=== PATIENT | male | born 1950 | race Caucasian/White ===

== ENCOUNTER → 2016-12-16 | Outpatient (CLI) | payer OTHER ==
[~2016-12-16] MED LIST: CIPR1TAB11 PO; LISI5TAB3 PO; METO50TA7 PO; NAPR1TAB9 PO
[2016-12-16 13:59] LABS: BLOOD UREA NITROGEN 19 mg/dl (7-18); BUN/CREATININE RATIO 19.2 (10-20); CARBON DIOXIDE 27 mmol/L (21-32); CHLORIDE 105 mmol/L (98-107); GLUCOSE 88 mg/dl (70-99); POTASSIUM 4.3 mmol/L (3.5-5.1); SODIUM 141 mmol/L (136-145)
[2016-12-16 14:03] LABS: PROSTATE SPECIFIC ANTIGEN 0.965 ng/ml (0.000-4.000)
== END | disposition home or self-care (01) ==
LOC: C.LABSPEC 12:31
PROVIDERS: ATTEND Internal Medicine
DX: I10 Essential (primary) hypertension (principal); N40.0 Benign prostatic hyperplasia without lower urinary tract symptoms; R30.0 Dysuria

== ENCOUNTER → 2016-12-19 | Outpatient (CLI) | payer OTHER | END | disposition home or self-care (01) | LOC: C.LABSPEC 12:19 | PROVIDERS: ATTEND Internal Medicine | DX: Z12.11 Encounter for screening for malignant neoplasm of colon (principal) ==

== ENCOUNTER → 2017-12-19 | Outpatient (CLI) | payer OTHER ==
[~2017-12-19] MED LIST changes: -METO50TA7 PO; +METO50TA8 PO
[2017-12-24 15:10] LABS: FECAL OCCULT BLOOD #1 NEGATIVE (NEGATIVE); FECAL OCCULT BLOOD #2 NEGATIVE (NEGATIVE); FECAL OCCULT BLOOD #3 NEGATIVE (NEGATIVE)
== END ==
LOC: C.LABSPEC 14:55
PROVIDERS: ATTEND Internal Medicine
DX: Z12.11 Encounter for screening for malignant neoplasm of colon (principal)

== ENCOUNTER → 2017-12-19 | Outpatient (CLI) | payer OTHER ==
[2017-12-19 13:45] LABS: BASO % 0.3 %; BASO ABS # 0.02 K/uL (0-0.2); EOS % 1.5 %; EOS ABS # 0.09 K/uL (0-0.5); HEMATOCRIT 41.7 % (42-52); HEMOGLOBIN 14.5 g/dL (14.0-18.0); IG# 0.02 K/uL (0.00-0.02); LYMPH % 31.9 %; LYMPH ABS # 1.91 K/uL (1.2-3.4); MEAN CELL VOLUME 91.2 fL (80-100); MEAN CORPUSCULAR HEMOGLOBIN 31.7 pg (25-34); MEAN CORPUSCULAR HGB CONC 34.8 g/dl (32-36); MEAN PLATELET VOLUME 11.2 fL (7.4-10.4); MONO % 8.9 %; MONO ABS # 0.53 K/uL (0.11-0.59); NEUT % 57.1 %; NEUT ABS # 3.41 K/uL (1.4-6.5); PLATELET COUNT 125 K/uL (130-400); RED CELL DISTRIBUTION WIDTH CV 12.9 % (11.5-14.5); RED CELL DISTRIBUTION WIDTH SD 42.8 fL (36.4-46.3); WHITE BLOOD COUNT 5.98 K/uL (4.8-10.8)
[2017-12-19 13:54] LABS: ALBUMIN 3.7 gm/dl (3.4-5.0); BLOOD UREA NITROGEN 18 mg/dl (7-18); CALCIUM 8.6 mg/dl (8.5-10.1); CARBON DIOXIDE 26 mmol/L (21-32); CREATININE 0.91 mg/dl (0.60-1.40); GLUCOSE 87 mg/dl (70-99); POTASSIUM 3.9 mmol/L (3.5-5.1); SODIUM 140 mmol/L (136-145)
[2017-12-19 14:01] LABS: ALKALINE PHOSPHATASE 47 U/L (45-117); ALT/SGPT 34 U/L (12-78); AST/SGOT 19 U/L (15-37); CHOLESTEROL 152 mg/dl (0-200); LDL CHOLESTEROL (DIRECT) 112 mg/dl; TOTAL PROTEIN 7.4 gm/dl (6.4-8.2)
== END ==
LOC: C.LABSPEC 13:16
PROVIDERS: ATTEND Internal Medicine
DX: N40.0 Benign prostatic hyperplasia without lower urinary tract symptoms (principal); R30.0 Dysuria; E78.5 Hyperlipidemia, unspecified; I10 Essential (primary) hypertension

== ENCOUNTER 2022-10-12 06:01 | Observation (INO) ==
[2022-10-12] MEDS ORDERED: SODIUM CHLORIDE 0.9% 1000ML 1,000 ML IV ONE (06:37)
[2022-10-12] MEDS ORDERED: HYDROcodone/HOMATROPINE SYRUP 5MG/1.5MG 5ML UDP PO STA (06:37)
--- NOTE | 2022-10-12 06:40 | Emergency Department Note ---
Impression & Plan LLL pneumonia, Respiratory syncytial virus (RSV), Hypoxia ED Provider Note Name: LISSY ENG JR Age: 72 Sex: M Arrives Via: Walk-In Informant: Patient, ED Provider: Roosevelt Chaudhari MD Chief Complaint: Shortness of breath Impression: As per impressions above Medical Decision Makin-year-old gentleman arrives for evaluation of shortness of breath. Patient does have a history of dyslipidemia, hypertension, A. fib is not on any anticoagulation. He notes several days worsening shortness of breath cough and fevers. Severely weak with fevers this morning. On arrival he is mildly hypoxic with sats in the low 90s. Blood pressure is good his lactate is normal and is not have an elevated procalcitonin. His examination does reveal decreased breath sounds and crackles throughout the left lower lobe. Given his symptoms is very much consistent with pneumonia. On chest x-ray though there is no clear lobar infiltrate. Laboratory work-up reveals an elevated white blood cell count, elevated troponin which is mildly bumped. I did get blood cultures. He is not hypotensive nor does he have an elevated lactic acid and hold off on 30/kg fluid bolus at this time as he is otherwise stable. He was given Rocephin and doxycycline for possible community-acquired pneumonia. He did test positive for RSV. In the setting of mildly low O2 sats dropping into the 80s his elevated white blood cell count and other findings I do think hospitalization is reasonable and I consulted the hospitalist for this. Prior Medical Record and Triage/Nursing Notes reviewed by Me Additional history obtained from chart & Differentials:Reactive airway disease, pneumonia, pneumothorax, CHF, infections, cardiac ischemia, pulmonary embolism, musculoskeletal, gastrointestinal, as well as other pathologies. Vital Signs: reviewed and remarkable for no significant abnormalities Interventions: Rocpehin 2gm iv, doxy 100mg iv, nss bolus, hycodan po Labs:Reviewed and remarkable for elevated wbc Imaging:X ray results are stated below per my interpretation: Chest: 1 view: No infiltrate, no effusion, normal cardiac border. EKG:Per My Interpretation: Indication Shortness of breath: Atrial sense, ventricular paced at 80 bpm, qtc 532 with LBBB. No Ectopy. No Ischemia. Compared to EKG 03/12/16 similar without significant changes. Cardiac/Tele Monitoring: Cardiac Monitoring: An Order was placed for continuous cardiac monitoring. The monitor shows a rate of 80 with a normal sinus rhythm. Consults:Dr Radha MIDDLETON Hospitalist Plan: Disposition:Hospitalization. Condition: Good History of Present Illness:72-year-old male arrives for evaluation of shortness of breath. Patient notes increasing shortness of breath over the last 4 days. Associated with chills and cough. Notes not getting much sleep at night due to coughing all night long. This morning developed a fever of 102.9. Did use some Tylenol at home. Notes significantly worse with exertion and better with rest. Denies any specific chest pain or pleuritic symptoms. Shortness of breath is worse with exertion but at rest he does not have shortness of breath. He notes he does feel quite tired and a bit worn out. No change in appetite. Denies any nausea, vomiting, headache, neck pain, chest pain, syncope, abdominal pain, back pain, urinary/bowel symptoms, leg swelling, calf pain, rashes nor other concerning signs or symptoms. Denies any recent falls, trauma, injuries. He has no previous history of pneumonia nor respiratory infections. He does note that his has a slight runny nose but nowhere near the symptoms he is having. No recent antibiotics or steroids. ROS: See above HPI for pertinent positives & negatives. A total of 10 systems reviewed and were otherwise negative. Past Medical History:A. fib, hypertension, dyslipidemia Past Surgical History:Pacemaker Family History:See Below Social History:See Below Home Medications:See Below Allergies:nkda Vitals:Blood Pressure: 144/84, Pulse 93, RR 18, T 36.6C, O2 92% on RA Physical Exam: GENERAL: Patient is tired appearing and in mild distress. EYES: No scleral icterus, unremarkable pupils. ENT: Mucous membranes dry, no nasal congestion. NECK: No masses appreciated, nomeningismus, trachea is midline. RESPIRATORY: Minimal dyspnea nor tachypnea. Decreased left lower lung breath sounds with crackles throughout left side. Right lung clear without wheezing. CARDIOVASCULAR: Regular rate and rhythm.No murmurs, rubs, gallops appreciated. GASTROINTESTINAL: Abdomen soft, non-tender, no peritonitis.Bowel sounds positive.No masses appreciated. BACK: No midline tenderness, no CVA tenderness EXTREMITIES: Normal motion all extremities, no cyanosis, no edema. NEUROLOGIC: Alert and oriented, no acute motor or sensory deficits, no focal weakness, cranial nerves grossly intact. SKIN: No rash, no jaundice, no diaphoresis. PSYCH: Appropriate GCS: 15 ED Course: Times/Reassessments: Patient with continued low O2 sats periodically dropping to upper 80s. In setting of exam consistent with pneumonia, elevated white blood cell count, hypoxia I feel admission is indicated. Lactic acid and procalcitonin are okay. I do not feel that he is septic at this time. Roosevelt Chaudhari MD Past Med/Surg History Medical History History of basal cell carcinoma History of SCC (squamous cell carcinoma) of skin Hypertension Left bundle-branch block Paroxysmal atrial fibrillation Third degree AV block Surgical History H/O wisdom tooth extraction S/P cardiac pacemaker procedure Family History Sister Breast cancer Ovarian cancer Uncle Colorectal cancer Paternal Uncle Mother Myocardial infarction Diabetes Brother , Secondary to AAA rupture age 39 Aortic aneurysm Hypertension Diabetes Father Diabetes Other Heart disease Denies family history of Prostate cancer Social History Smoking Status: Never smoker Second Hand Exposure: No; Hx Alcohol Use: Yes Alcohol type: wine Alcohol Intake Frequency: Monthly or Less Hx Substance Use: No Preferred Language: Thai Visual Impairment: No Limitations Hearing Ability: Hard of Hearing marital status: Current Living Situation: Spouse current occupational status: retired current occupation: worked for [employer]; 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[employer]); also worked [employer] How many Children do You have: 1 How many Children do You have Comment: son Feels Safe at Home: Yes Childhood Exposure to Second-Hand Smoke: No Dental Care, Regularly: Yes Physical Activity Frequency: 3-4 Times per Week Seatbelt Use: always Sunscreen Use: Yes Allergies Allergies Allergy/AdvReac Type Severity Reaction Status Date / Time No Known Allergies Allergy Verified 07/23/22 11:37 Home Meds Home Medications Medication Instructions Recorded Confirmed naproxen PO PRN 09/20/19 07/23/22 vit A 7,160 unit-vit C 113 mg-vit tab PO 09/20/19 07/23/22 E 100 [id number] tablet Previous Rx's Medication Instructions Recorded lisinopril 5 mg tablet 5 mg PO DAILY #90 tabs 05/08/22 metoprolol tartrate 50 mg tablet 50 mg PO BID #180 tabs 05/08/22 Results & Data (ED) Vital Signs Vital Signs - 24 hr 10/12/22 06:05 10/12/22 08:02 10/12/22 08:37 Temperature 36.6 C Temperature Source Temporal Artery Scan Pulse Rate 93 H Pulse Rate [Apical] 80 Respiratory Rate 18 18 Respiratory Effort / Characteristics Non-Labored Spontaneous Non-Labored Spontaneous Respiratory Depth Normal Normal Respiratory Pattern Regular Blood Pressure 144/84 H Blood Pressure [Right Arm] 117/69 Blood Pressure Mean 104 Blood Pressure Mean [Right Arm] 85 Blood Pressure Position Sitting Blood Pressure Position [Right Arm] Sitting Pulse Oximetry 92 91 89 L Oxygen Delivery Method Room Air Room Air Room Air Oxygen Flow Rate Sepsis Recent Fever Within 48 Hours Yes Sepsis New/Unexplained Change in Mental Status N/A Sepsis Action Taken by Nursing No Action Required 10/12/22 07:02 10/12/22 07:30 10/12/22 08:00 Temperature Temperature Source Pulse Rate 85 77 77 Pulse Rate [Apical] Respiratory Rate 18 20 Respiratory Effort / Characteristics Respiratory Depth Respiratory Pattern Blood Pressure 136/79 117/65 117/69 Blood Pressure [Right Arm] Blood Pressure Mean 98 82 85 Blood Pressure Mean [Right Arm] Blood Pressure Position Blood Pressure Position [Right Arm] Pulse Oximetry 90 91 91 Oxygen Delivery Method Room Air Room Air Room Air Oxygen Flow Rate Sepsis Recent Fever Within 48 Hours Sepsis New/Unexplained Change in Mental Status Sepsis Action Taken by Nursing 10/12/22 08:29 10/12/22 08:30 10/12/22 08:38 Temperature Temperature Source Pulse Rate 75 77 Pulse Rate [Apical] Respiratory Rate 18 20 Respiratory Effort / Characteristics Respiratory Depth Respiratory Pattern Blood Pressure 130/70 114/70 Blood Pressure [Right Arm] Blood Pressure Mean 90 84 Blood Pressure Mean [Right Arm] Blood Pressure Position Blood Pressure Position [Right Arm] Pulse Oximetry 91 90 93 Oxygen Delivery Method Room Air Room Air Nasal Cannula Oxygen Flow Rate 2 Sepsis Recent Fever Within 48 Hours Sepsis New/Unexplained Change in Mental Status Sepsis Action Taken by Nursing 10/12/22 09:00 10/12/22 09:30 Temperature Temperature Source Pulse Rate 75 78 Pulse Rate [Apical] Respiratory Rate 18 20 Respiratory Effort / Characteristics Respiratory Depth Respiratory Pattern Blood Pressure 123/73 121/79 Blood Pressure [Right Arm] Blood Pressure Mean 89 93 Blood Pressure Mean [Right Arm] Blood Pressure Position Blood Pressure Position [Right Arm] Pulse Oximetry 93 94 Oxygen Delivery Method Nasal Cannula Nasal Cannula Oxygen Flow Rate 2 2 Sepsis Recent Fever Within 48 Hours Sepsis New/Unexplained Change in Mental Status Sepsis Action Taken by Nursing Laboratory Data Result diagrams: 10/12/22 06:46 10/12/22 06:46 Lab Results 10/12/22 10/12/22 10/12/22 Range/Units 06:12 06:46 06:46 WBC 18.92 H (4.8-10.8) K/ul RBC 4.53 L (4.63-6.08) M/uL Hgb 14.7 (14.0-18.0) g/dl Hct 42.1 (40.1-51.0) % MCV 92.9 (80.0-100.0) fL MCH 32.5 (25.0-34.0) pg MCHC 34.9 (32.0-36.0) g/dL RDW Std Deviation 43.8 (36.4-46.3) fL RDW Coeff of Bobo 12.8 (11.5-14.5) % Plt Count 146 (130-400) K/uL MPV 10.4 (9.4-12.4) fL Immature Gran % (Auto) 0.5 % Neut % (Auto) 83.7 % Lymph % (Auto) 8.5 % Pacific % (Auto) 6.9 % Eos % (Auto) 0.2 % Baso % (Auto) 0.2 % Neut # (Auto) 15.84 H (1.4-6.5) K/uL Lymph # (Auto) 1.61 (1.2-3.4) K/uL Pacific # (Auto) 1.30 H (0.24-0.82) K/uL Eos # (Auto) 0.03 (0-0.50) K/uL Baso # (Auto) 0.04 (0-0.2) K/uL Immature Gran # (Auto) 0.10 H (0.00-0.02) K/uL Sodium (136-145) mmol/L Potassium (3.5-5.1) mmol/L Chloride (98-107) mmol/L Carbon Dioxide (21-32) mmol/L Anion Gap (3-11) BUN (6-23) mg/dl Creatinine (0.6-1.4) mg/dl Est Cr Clr Drug Dosing ml/min Est GFR ( Amer) ml/min Est GFR (Non-Af Amer) ml/min BUN/Creatinine Ratio (10-20) Glucose (70-99(Fasting)) mg/dl Lactate 1.2 (0.4-2.0) mmol/L Calcium (8.5-10.1) mg/dl Magnesium (1.7-2.4) mg/dl Troponin I High Sens (0-20) pg/ml Procalcitonin (0-0.5) ng/ml Urine Color Urine Appearance (Clear) Urine pH (4.5-7.5) Ur Specific Warner (1.000-1.030) Urine Protein (Negative) Urine Glucose (UA) (Negative) Urine Ketones (Negative) Urine Blood (Negative) Urine Nitrite (Negative) Urine Bilirubin (Negative) Urine Urobilinogen (Negative) Ur Leukocyte Esterase (Negative) Urine WBC (Auto) (0-5) /hpf Urine RBC (Auto) (0-4) /hpf U Hyaline Cast (Auto) (0-5) /lpf U Epithel Cells (Auto) (0-5) /lpf Urine Bacteria (Auto) (Negative) SARS-CoV-2 (PCR) NEGATIVE (Negative) Influenza Type A (PCR) Negative (Neg) Influenza Type B (PCR) Negative (Neg) RSV (RT-PCR) Positive A* (Neg) 10/12/22 10/12/22 10/12/22 Range/Units 06:46 06:46 08:26 WBC (4.8-10.8) K/ul RBC (4.63-6.08) M/uL Hgb (14.0-18.0) g/dl Hct (40.1-51.0) % MCV (80.0-100.0) fL MCH (25.0-34.0) pg MCHC (32.0-36.0) g/dL RDW Std Deviation (36.4-46.3) fL RDW Coeff of Bobo (11.5-14.5) % Plt Count (130-400) K/uL MPV (9.4-12.4) fL Immature Gran % (Auto) % Neut % (Auto) % Lymph % (Auto) % Pacific % (Auto) % Eos % (Auto) % Baso % (Auto) % Neut # (Auto) (1.4-6.5) K/uL Lymph # (Auto) (1.2-3.4) K/uL Pacific # (Auto) (0.24-0.82) K/uL Eos # (Auto) (0-0.50) K/uL Baso # (Auto) (0-0.2) K/uL Immature Gran # (Auto) (0.00-0.02) K/uL Sodium 137 (136-145) mmol/L Potassium 3.8 (3.5-5.1) mmol/L Chloride 103 (98-107) mmol/L Carbon Dioxide 27 (21-32) mmol/L Anion Gap 7 (3-11) BUN 22 (6-23) mg/dl Creatinine 0.81 (0.6-1.4) mg/dl Est Cr Clr Drug Dosing 105.3 ml/min Est GFR ( Amer) 102.9 ml/min Est GFR (Non-Af Amer) 88.8 ml/min BUN/Creatinine Ratio 27.2 H (10-20) Glucose 136 H (70-99(Fasting)) mg/dl Lactate (0.4-2.0) mmol/L Calcium 8.8 (8.5-10.1) mg/dl Magnesium 1.9 (1.7-2.4) mg/dl Troponin I High Sens 20.1 H (0-20) pg/ml Procalcitonin < 0.05 (0-0.5) ng/ml Urine Color Yellow Urine Appearance Clear (Clear) Urine pH 6.0 (4.5-7.5) Ur Specific Warner 1.020 (1.000-1.030) Urine Protein Trace H (Negative) Urine Glucose (UA) Negative (Negative) Urine Ketones Negative (Negative) Urine Blood 2+ H (Negative) Urine Nitrite Negative (Negative) Urine Bilirubin Negative (Negative) Urine Urobilinogen Negative (Negative) Ur Leukocyte Esterase Negative (Negative) Urine WBC (Auto) 1-5 (0-5) /hpf Urine RBC (Auto) 5-10 H (0-4) /hpf U Hyaline Cast (Auto) 1-5 (0-5) /lpf U Epithel Cells (Auto) 5-10 H (0-5) /lpf Urine Bacteria (Auto) Negative (Negative) SARS-CoV-2 (PCR) (Negative) Influenza Type A (PCR) (Neg) Influenza Type B (PCR) (Neg) RSV (RT-PCR) (Neg) Administered Medications Discontinued Medications Albuterol (Albut/Ipratrop 3mg/0.5mg Neb 3 Ml Vial) 3 ml NEB NOW STA; Protocol Stop: 10/12/22 09:34 Last Admin: 10/12/22 10:03 Dose: 3 ml Documented By: CLAUDINE Hydrocodone Bit/Homatropine Methylb (Hydrocodone/Homatropine Syrup 5mg/1.5mg 5ml Udp) 5 ml PO NOW STA Stop: 10/12/22 06:38 Last Admin: 10/12/22 06:59 Dose: 5 ml Documented By: CLAUDINE Sodium Chloride (Nss 1000ml) 1,000 mls @ 999 mls/hr IV .Q1H1M ONE Stop: 10/12/22 07:37 Last Infusion: 10/12/22 07:57 Dose: 0 mls/hr Documented By: Admin: 10/12/22 06:48 Dose: 999 mls/hr Documented By: LEDA Ceftriaxone Sodium (Rocephin) 2,000 mg in 70 mls @ 140 mls/hr IV NOW STA Stop: 10/12/22 08:34 Last Infusion: 10/12/22 08:56 Dose: 0 mls/hr Documented By: Admin: 10/12/22 08:24 Dose: 140 mls/hr Documented By: CLAUDINE Doxycycline Hyclate 100 mg/ (Dextrose) 110 mls @ 50 mls/hr IV NOW STA Stop: 10/12/22 10:16 Last Infusion: 10/12/22 11:00 Dose: 0 mls/hr Documented By: Admin: 10/12/22 08:45 Dose: 50 mls/hr Documented By: CLAUDINE Dexamethasone 6 mg/ Syringe 1.5 mls @ 1 mls/min IV ONE ONE Stop: 10/12/22 10:01 Last Admin: 10/12/22 10:58 Dose: 1 mls/min Documented By: DARA Imaging Data Radiologist's Impression: Chest X-Ray 10/12/22 06:37 XR chest 1V portable CLINICAL HISTORY: cough, fever, hypoxia COMPARISON STUDY: Chest radiograph and chest CT January 13, 2009. FINDINGS: Dual lead left subclavian pacer is in place. No pneumothorax or pleural effusion is noted. There is moderate cardiomegaly without evidence for pulmonary edema. There is no consolidation to suggest pneumonia. IMPRESSION: No acute cardiopulmonary findings. Cardiomegaly. ACT 112: Negative or not required by law. Electronically signed by: Thiago Laurent M.D. 10/12/2022 7:07 AM Discharge Plan Visit Data Chief Complaint: Respiratory Problems Stated Complaint: HARD TO BREATHE ED Provider: Roosevelt Chaudhari Discharge Problem: LLL pneumonia, Respiratory syncytial virus (RSV), Hypoxia Patient Disposition: Admitted As Inpatient Discharge Instructions Interventions: ED Discharge Assessment Last Done: 10/12/22 11:44 : LLL pneumonia Qualifiers: Pneumonia type: due to unspecified organism Qualified Code(s): J18.9 - Pneumonia, unspecified organism
[2022-10-12 06:59] LABS: Influenza A virus by PCR Negative (Neg); Influenza B virus by PCR Negative (Neg); SARS CoV2 RNA(COVID-19) Ceph NEGATIVE (Negative)
--- NOTE | 2022-10-12 07:08 | XRay Report ---
XR chest 1V portable CLINICAL HISTORY: cough, fever, hypoxia COMPARISON STUDY: Chest radiograph and chest CT January 13, 2009. FINDINGS: Dual lead left subclavian pacer is in place. No pneumothorax or pleural effusion is noted. There is moderate cardiomegaly without evidence for pulmonary edema. There is no consolidation to sug gest pneumonia. IMPRESSION: No acute cardiopulmonary findings. Cardiomegaly. ACT 112: Negative or not required by law. Electronically signed by: Thiago Laurent M.D. 10/12/2022 7:07 AM
[2022-10-12 07:16] LABS: RSV by PCR Positive (Neg)
[2022-10-12 07:25] LABS: BUN Creatinine Ratio 27.2 (10-20); Calcium 8.8 mg/dl (8.5-10.1); Creatinine Clr Calc Pharmacy 105.3 ml/min; Est GFR (African American) 102.9 ml/min; Est GFR (Non-African American) 88.8 ml/min; Magnesium 1.9 mg/dl (1.7-2.4); Potassium 3.8 mmol/L (3.5-5.1)
[2022-10-12 07:31] LABS: Troponin I High Sensitivity 20.1 pg/ml (0-20)
[2022-10-12 07:51] LABS: Basophils # (auto) 0.04 K/uL (0-0.2); Basophils % (auto) 0.2 %; Eosinophils # (auto) 0.03 K/uL (0-0.50); Eosinophils % (auto) 0.2 %; Hematocrit (blood only) 42.1 % (40.1-51.0); Hemoglobin 14.7 g/dl (14.0-18.0); Immature Granulocytes % (auto) 0.5 %; Lymphocytes # (auto) 1.61 K/uL (1.2-3.4); Lymphocytes % (auto) 8.5 %; Mean Corpuscular Hemoglobin 32.5 pg (25.0-34.0); Mean Corpuscular Hgb Conc 34.9 g/dL (32.0-36.0); Mean Corpuscular Volume 92.9 fL (80.0-100.0); Mean Platelet Volume 10.4 fL (9.4-12.4); Monocytes % (auto) 6.9 %; Neutrophils # (auto) 15.84 K/uL (1.4-6.5); Neutrophils % (auto) 83.7 %; Platelet Count 146 K/uL (130-400); RDW Coefficient of Variation 12.8 % (11.5-14.5); RDW Standard Deviation 43.8 fL (36.4-46.3); Red Blood Count 4.53 M/uL (4.63-6.08); White Blood Count 18.92 K/ul (4.8-10.8)
[2022-10-12] MEDS ORDERED: cefTRIAXone SODIUM 2,000 MG/70 ML BAG IV STA (08:05)
[2022-10-12] MEDS ORDERED: DOXYCYCLINE HYCLATE 100 MG in DEXTROSE 5% 100 ML IV STA (08:05)
[2022-10-12 08:39] LABS: Appearance Urine Clear (Clear); Bacteria Urine Automated Negative (Negative); Bilirubin Urine Negative (Negative); Blood Urine 2+ (Negative); Color Urine Yellow; Glucose Urine UA Negative (Negative); Ketones Urine Negative (Negative); Leukocyte Esterase Urine Negative (Negative); Nitrite Urine Negative (Negative); Protein Urine Trace (Negative); Urobilinogen Urine Negative (Negative)
--- NOTE | 2022-10-12 08:45 | History & Physical Report ---
Date of Service October 12, 2022 Assessment & Plan (1) RSV bronchitis: Plan: RSV PCR positive at time of presentation today. CXR without discrete infiltrates. He has evidence of bronchitis due to the RSV. Will place on scheduled duonebs. Give dexamethasone 6mg IV x 1 now, followed by dexamethasone 4mg BID thereafter. Pulmonary toilet with incentive willa, flutter valve, and mucinex 1200mg BID. Add tessalon 100mg [address] in droplet precautions. RSV handout given to pt and his . He has mild hypoxia and a leukocytosis - plan to repeat his cxr in the am to exclude bacterial superinfection. Defer on additional abx for now. (2) Hypoxia: Plan: 2nd to #1 above. (3) Dyslipidemia: Plan: Not on medication for such. (4) Hypertension: Plan: Continue metoprolol 50mg BID. 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 No recent issues with the device. (6) PAF (paroxysmal atrial fibrillation): Plan: Per his recollection he has had only 1 brief episode of such that was found on a pacemaker interrogation in the past. Continue beta kike. He is not on long-term anticoagulation. (7) Leukocytosis: Plan: See above. Repeat cxr and CBC in am. (8) DVT prophylaxis: Plan: Lovenox 40mg daily Plan Give 1 Liter of IV fluids and then stop. History of Present Illness Chief Complaint: fever, cough, shortness of breath Primary Care Provider: Robert Palacios, III, [employer] 72yo male with history of LBBB and 2nd/3rd degree AV block, s/p pacemaker placement in 2007, HTN, long-standing hematuria with negative work-up, and 1 episode of PAF who presents with respiratory illness symptoms starting on Friday of this week. Initially started with runny nose, sore throat, and congestion. By Friday he had a cough, and as the week went on, the cough worsened. He ultimately developed yellow sputum production. Over the last 1-2 days he has had wheezing with mild dyspnea on exertion. Last evening he developed new-onset fever to 102.8 degrees. This was his first fever since he became sick. developed URI symptoms a few days after he did. He denies any h/o tobacco use or chronic lung disease. His encouraged him to seek medical attention this am due to the fever as well as dyspnea on exertion. In the ER today he tested + for RSV. He was also noted to have mild hypoxia to 89% sats in room air. During my visit he is on NC O2 and resting comfortably. He denies any loss of appetite this week. Denies any GI symptoms, headache, or myalgias. Allergies Allergy/AdvReac Type Severity Reaction Status Date / Time No Known Allergies Allergy Verified 07/23/22 11:37 Home Medications Medication Instructions Recorded Confirmed Type naproxen PO PRN 09/20/19 07/23/22 History vit A 7,160 unit-vit C 113 mg-vit tab PO 09/20/19 07/23/22 History E 100 [id number] tablet lisinopril 5 mg tablet 5 mg PO DAILY #90 tabs 05/08/22 07/23/22 Rx metoprolol tartrate 50 mg tablet 50 mg PO BID #180 tabs 05/08/22 07/23/22 Rx Past Med/Surg History Medical History History of basal cell carcinoma History of SCC (squamous cell carcinoma) of skin Hypertension Left bundle-branch block Paroxysmal atrial fibrillation Third degree AV block Surgical History H/O wisdom tooth extraction S/P cardiac pacemaker procedure Family History Sister Breast cancer Ovarian cancer Uncle Colorectal cancer Paternal Uncle Mother Myocardial infarction Diabetes Brother , Secondary to AAA rupture age 39 Aortic aneurysm Hypertension Diabetes Father Diabetes Other Heart disease Denies family history of Prostate cancer Social History Smoking Status: Never smoker Second Hand Exposure: No; Do You Dip or Chew Tobacco: No; Tobacco Cessation Education Requested by Patient: No Hx Alcohol Use: No Hx Substance Use: No Preferred Language: Bahamian Communication Ability: Effective Visual Impairment: No Limitations Hearing Ability: Hard of Hearing Wood Model Maker Required: No Beliefs That Will Affect Care: None marital status: Current Living Situation: Spouse current occupational status: retired current occupation: worked for [employer]; 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eek); also worked [employer] How many Children do You have: 1 How many Children do You have Comment: son Other Information That Helps Us Care for You: No Feels Safe at Home: Yes Safety Concerns: Feels Safe At This Time Childhood Exposure to Second-Hand Smoke: No Dental Care, Regularly: Yes Physical Activity Frequency: 3-4 Times per Week Seatbelt Use: always Sunscreen Use: Yes Assistive Devices: None Review of Systems Review of Systems: gen - fevers/chills last pm only; no loss of appetite; no change in weight eyes - no visual changes HENT - runny nose/congestion/sore throat earlier this week CV - no cp, no chest tightness pulm - cough, dyspnea on exertion, wheezing, sputum production; no hemoptysis GI - no N/V/abd pain/BRBPR - occasional gross hematuria but no LUTS musculo - no myalgias; chronic knee pain due to OA neuro - no headache skin - occasional bruises; just had BCC removed from face endo - no diabetes psych - no depression/anxiety Physical Exam Physical Exam: gen - NAD, sick but nontoxic, no respiratory distress eyes - PERRl HENT - TMs clear b/l, nose congested, mild throat erythema, MMM neck - supple, no JVD, no masses heart - RRR, s1 s2, no murmur lungs - b/l wheezes, b/l basilar fine rales, no increased work of breathing abd - soft NT ND BS+; no HSM ext - no edema, pulses 2+ b/l lymph - no cervical lymph nodes b/l neuro - strength 5/5 x 4 exts; DTRs 2+ b/l upper & lower exts psych - a/o x 3 skin - no generalized rash Results & Data Results & Data ([facility]) Vital Signs (Past 12 Hours) Vital Signs Temp Pulse Pulse Resp BP BP Pulse Ox 10/12/22 08:37 89 L 10/12/22 08:02 80 18 117/69 91 10/12/22 06:05 36.6 C 93 H 18 144/84 H 92 O2 Del Method 10/12/22 08:37 Room Air 10/12/22 08:02 Room Air 10/12/22 06:05 Room Air Laboratory Results Laboratory Results - last 24 hr 10/12/22 10/12/22 10/12/22 06:12 06:46 06:46 WBC 18.92 H RBC 4.53 L Hgb 14.7 Hct 42.1 MCV 92.9 MCH 32.5 MCHC 34.9 RDW Std Deviation 43.8 RDW Coeff of Bobo 12.8 Plt Count 146 MPV 10.4 Immature Gran % (Auto) 0.5 Neut % (Auto) 83.7 Lymph % (Auto) 8.5 Isabella % (Auto) 6.9 Eos % (Auto) 0.2 Baso % (Auto) 0.2 Neut # (Auto) 15.84 H Lymph # (Auto) 1.61 Isabella # (Auto) 1.30 H Eos # (Auto) 0.03 Baso # (Auto) 0.04 Immature Gran # (Auto) 0.10 H Sodium Potassium Chloride Carbon Dioxide Anion Gap BUN Creatinine Est Cr Clr Drug Dosing Est GFR ( Amer) Est GFR (Non-Af Amer) BUN/Creatinine Ratio Glucose Lactate 1.2 Calcium Magnesium Troponin I High Sens Procalcitonin Urine Color Urine Appearance Urine pH Ur Specific [place] Urine Protein Urine Glucose (UA) Urine Ketones Urine Blood Urine Nitrite Urine Bilirubin Urine Urobilinogen Ur Leukocyte Esterase Urine WBC (Auto) Urine RBC (Auto) U Hyaline Cast (Auto) U Epithel Cells (Auto) Urine Bacteria (Auto) SARS-CoV-2 (PCR) NEGATIVE Influenza Type A (PCR) Negative Influenza Type B (PCR) Negative RSV (RT-PCR) Positive A* 10/12/22 10/12/22 10/12/22 06:46 06:46 08:26 WBC RBC Hgb Hct MCV MCH MCHC RDW Std Deviation RDW Coeff of Bobo Plt Count MPV Immature Gran % (Auto) Neut % (Auto) Lymph % (Auto) Isabella % (Auto) Eos % (Auto) Baso % (Auto) Neut # (Auto) Lymph # (Auto) Isabella # (Auto) Eos # (Auto) Baso # (Auto) Immature Gran # (Auto) Sodium 137 Potassium 3.8 Chloride 103 Carbon Dioxide 27 Anion Gap 7 BUN 22 Creatinine 0.81 Est Cr Clr Drug Dosing 105.3 Est GFR ( Amer) 102.9 Est GFR (Non-Af Amer) 88.8 BUN/Creatinine Ratio 27.2 H Glucose 136 H Lactate Calcium 8.8 Magnesium 1.9 Troponin I High Sens 20.1 H Procalcitonin < 0.05 Urine Color Yellow Urine Appearance Clear Urine pH 6.0 Ur Specific [place] 1.020 Urine Protein Trace H Urine Glucose (UA) Negative Urine Ketones Negative Urine Blood 2+ H Urine Nitrite Negative Urine Bilirubin Negative Urine Urobilinogen Negative Ur Leukocyte Esterase Negative Urine WBC (Auto) 1-5 Urine RBC (Auto) 5-10 H U Hyaline Cast (Auto) 1-5 U Epithel Cells (Auto) 5-10 H Urine Bacteria (Auto) Negative SARS-CoV-2 (PCR) Influenza Type A (PCR) Influenza Type B (PCR) RSV (RT-PCR) Diagnostic Findings Chest X-Ray 10/12/22 06:37 XR chest 1V portable CLINICAL HISTORY: cough, fever, hypoxia COMPARISON STUDY: Chest radiograph and chest CT January 13, 2009. FINDINGS: Dual lead left subclavian pacer is in place. No pneumothorax or pleural effusion is noted. There is moderate cardiomegaly without evidence for pulmonary edema. There is no consolidation to suggest pneumonia. IMPRESSION: No acute cardiopulmonary findings. Cardiomegaly. ACT 112: Negative or not required by law. Electronically signed by: Thiago Laurent M.D. 10/12/2022 7:07 AM EKG - ventricular pacing PG Care Time/CCT Total # of Minutes Spent Total Time Spent with Patient: Total time spent is greater than 50% in coordination of care (as documented) at patient's floor/unit and/or counseling patient: Coding Level of Care Code 59831 Initial Inpt Care Lvl 2 Diagnoses RSV bronchitis J20.5 Hypoxia R09.02 Dyslipidemia E78.5 Hypertension I10 Hypertension type: primary hypertension Cardiac pacemaker Z95.0 PAF (paroxysmal atrial fibrillation) I48.0 Leukocytosis D72.829 DVT prophylaxis Z29.9 (1) Hypertension Hypertension type: primary hypertension Qualified Code(s): I10 - Essential (primary) hypertension
[2022-10-12] MEDS ORDERED: ALBUT/IPRATROP 3MG/0.5MG NEB 3 ML VIAL NEB STA (09:33)
[2022-10-12] MEDS ORDERED: dexAMETHasone 6 MG in SYRINGE 0 ML IV ONE (10:00)
[2022-10-12] MEDS ORDERED: ONDANSETRON INJ 2 MG/ML 2 ML VIAL IV PRN (12:41)
[2022-10-12] MEDS ORDERED: ACETAMINOPHEN 325 MG TAB PO PRN (12:41)
[2022-10-12] MEDS ORDERED: SODIUM CHLORIDE 0.9% 1000ML 1,000 ML IV SCH (12:41)
[2022-10-12] MEDS: METOPROLOL TARTRATE 50 MG TAB PO SCH ×2 (14:20→22:03)
[2022-10-12] MEDS: ENOXAPARIN INJ 40 MG/0.4 ML SYR SQ SCH (14:21)
[2022-10-12] MEDS: guaiFENesin 600 MG TABCR PO SCH ×2 (14:21→21:58)
[2022-10-12] MEDS: BENZONATATE 100 MG CAPSULE PO SCH ×2 (14:54→21:58)
[2022-10-12] MEDS: ALBUT/IPRATROP 3MG/0.5MG NEB 3 ML VIAL NEB SCH ×2 (15:30→19:51)
[2022-10-12] MEDS: dexAMETHasone 4 MG in SYRINGE 0 ML IV SCH (21:59)
[2022-10-13 07:36] LABS: BUN Creatinine Ratio 33.3 (10-20); Calcium 8.4 mg/dl (8.5-10.1); Creatinine Clr Calc Pharmacy 149.1 ml/min; Est GFR (African American) 118.9 ml/min; Est GFR (Non-African American) 102.6 ml/min; Potassium 3.9 mmol/L (3.5-5.1)
[2022-10-13 07:46] LABS: Hematocrit (blood only) 37.1 % (40.1-51.0); Mean Corpuscular Hemoglobin 32.3 pg (25.0-34.0); Mean Corpuscular Volume 92.1 fL (80.0-100.0); Mean Platelet Volume 10.7 fL (9.4-12.4); Platelet Count 128 K/uL (130-400); RDW Coefficient of Variation 12.5 % (11.5-14.5); RDW Standard Deviation 42.2 fL (36.4-46.3); Red Blood Count 4.03 M/uL (4.63-6.08); White Blood Count 12.95 K/ul (4.8-10.8)
[2022-10-13] MEDS: BENZONATATE 100 MG CAPSULE PO SCH ×3 (07:46→21:01)
[2022-10-13] MEDS: METOPROLOL TARTRATE 50 MG TAB PO SCH ×2 (07:47→21:02)
[2022-10-13] MEDS: dexAMETHasone 4 MG in SYRINGE 0 ML IV SCH ×2 (07:47→21:02)
[2022-10-13] MEDS: guaiFENesin 600 MG TABCR PO SCH ×2 (07:47→21:01)
[2022-10-13] MEDS: ALBUT/IPRATROP 3MG/0.5MG NEB 3 ML VIAL NEB SCH ×5 (07:56→20:44)
--- NOTE | 2022-10-13 09:24 | XRay Report ---
XR chest 2V PA/lateral HISTORY: 72 years-old Male RSV bronchitis; check for developing pneumonia acute shortness of breath COMPARISON: 10/12/2022 TECHNIQUE: AP view of the chest FINDINGS: Left subclavian pacer. Cardiomegaly. No pneumothorax, pleural effusion, airspace consolidation or ove rt pulmonary edema. Bones of the chest appear grossly intact. IMPRESSION: Cardiomegaly without acute process. ACT 112: Negative or not required by law. The above report was generated using voice recognition software. It may contain grammatical, syntax o r spelling errors. Electronically signed by: Paul Chen M.D. 10/13/2022 9:22 AM
[2022-10-13] MEDS: ENOXAPARIN INJ 40 MG/0.4 ML SYR SQ SCH (11:21)
--- NOTE | 2022-10-13 21:05 | Hospitalist Progress Note ---
Date of Service October 13, 2022 Assessment & Plan (1) RSV bronchitis: Plan: improved, but borderline O2 sats pt willing to stay 1 more night cont steroids - no wean today cont scheduled nebs cont flutter valve, incentive, etc cont mucinex, etc (2) Hypoxia: Plan: 2nd to #1 above. improving, but still borderline O2 sats at times cont pulm toilet, steroids, etc (3) Dyslipidemia: Plan: Not on medication for such. (4) Hypertension: Plan: Continue metoprolol 50mg BID. BPs acceptable (5) Cardiac pacemaker: Plan: Placed many years ago for 2nd/3rd degree AV block. No recent issues with the device. pacing on tele (6) PAF (paroxysmal atrial fibrillation): Plan: Per his recollection he has had only 1 brief episode of such that was found on a pacemaker interrogation in the past. Continue beta kike. He is not on long-term anticoagulation. (7) Leukocytosis: Plan: improving without abx therapy no fever cxr without bacterial superinfection. monitor. (8) DVT prophylaxis: Plan: Lovenox 40mg daily Plan updated at bedside hopefully home tomorrow Admission and Anticipated Discharge Date Admission Date: October 12, 2022 Subjective tele overnight pacing he feels much better still with cough but not as much can take deeper breaths denies dyspnea or [place] today I had staff walk him in hallway - 02 sats about 90% in RA during the walk Review of Systems Review of Systems: gen - no further fever; eating well cv - no cp or tightness pulm - wheezing ongoing GI - no N/V/abd pain Physical Exam Physical Exam: gen - NAD, looks better today mouth - MMM neck - no JVD heart - RRR, s1 s2, no murmur lungs - b/l wheezes but improved; scant b/l basilar fine rales, no increased work of breathing; airation better today abd - soft NT ND BS+; no HSM ext - no edema, pulses 2+ b/l psych - a/o x 3 Results & Data Results & Data ([facility]) Vital Signs (Past 12 Hours) Vital Signs Temp Pulse Pulse Resp BP Pulse Ox O2 Del Method 10/13/22 21:00 155/77 H 10/13/22 20:47 91 H 18 93 Room Air 10/13/22 18:00 113 H 18 94 Room Air 10/13/22 15:23 101 H 10/13/22 11:33 88 18 95 Room Air 10/13/22 11:31 36.8 C 82 16 148/76 H 94 Room Air Laboratory Results Laboratory Results - last 24 hr 10/13/22 10/13/22 06:41 06:41 WBC 12.95 H RBC 4.03 L Hgb 13.0 L Hct 37.1 L MCV 92.1 MCH 32.3 MCHC 35.0 RDW Std Deviation 42.2 RDW Coeff of Bobo 12.5 Plt Count 128 L MPV 10.7 Sodium 138 Potassium 3.9 Chloride 107 Carbon Dioxide 23 Anion Gap 8 BUN 19 Creatinine 0.57 L Est Cr Clr Drug Dosing 149.1 Est GFR ( Amer) 118.9 Est GFR (Non-Af Amer) 102.6 BUN/Creatinine Ratio 33.3 H Glucose 157 H Calcium 8.4 L Diagnostic Findings Chest X-Ray 10/13/22 07:00 XR chest 2V PA/lateral HISTORY: 72 years-old Male RSV bronchitis; check for developing pneumonia acute shortness of breath COMPARISON: 10/12/2022 TECHNIQUE: AP view of the chest FINDINGS: Left subclavian pacer. Cardiomegaly. No pneumothorax, pleural effusion, airspace consolidation or overt pulmonary edema. Bones of the chest appear grossly intact. IMPRESSION: Cardiomegaly without acute process. ACT 112: Negative or not required by law. The above report was generated using voice recognition software. It may contain grammatical, syntax or spelling errors. Electronically signed by: Paul Chen M.D. 10/13/2022 9:22 AM PG Care Time/CCT Total # of Minutes Spent Total Time Spent with Patient: Total time spent is greater than 50% in coordination of care (as documented) at patient's floor/unit and/or counseling patient: Coding Level of Care Code 58992 Subseq Hosp Care Lvl 2 Diagnoses RSV bronchitis J20.5 Hypoxia R09.02 Dyslipidemia E78.5 Hypertension I10 Hypertension type: primary hypertension Cardiac pacemaker Z95.0 PAF (paroxysmal atrial fibrillation) I48.0 Leukocytosis D72.829 DVT prophylaxis Z29.9 (1) Hypertension Hypertension type: primary hypertension Qualified Code(s): I10 - Essential (primary) hypertension
--- NOTE | 2022-10-14 05:44 | Electrocardiogram Report ---
Test Reason : Blood Pressure : / mmHG Vent. Rate : 080 BPM Atrial Rate : 080 BPM P-R Int : 184 ms QRS Dur : 230 ms QT Int : 462 ms P-R-T Axes : -05 -74 088 degrees QTc Int : 532 ms Poor data quality, interpretation may be adversely affected Atrial-sensed ventricular-paced rhythm Abnormal ECG When compared with ECG of 12-MAR-2016 14:21, Vent. rate has increased BY 18 BPM Confirmed by Mehran Arzate ([id number]) on 10/14/2022 5:43:37 AM Referred By: REFERRED SELF Confirmed By:Mehran Arzate
--- NOTE | 2022-10-14 06:16 | Electrocardiogram Report ---
Test Reason : Blood Pressure : / mmHG Vent. Rate : 085 BPM Atrial Rate : 085 BPM P-R Int : 184 ms QRS Dur : 238 ms QT Int : 488 ms P-R-T Axes : 023 -75 087 degrees QTc Int : 580 ms Atrial-sensed ventricular-paced rhythm Abnormal ECG When compared with ECG of 12-OCT-2022 06:46, Vent. rate has increased BY 5 BPM Confirmed by Mehran Arzate ([id number]) on 10/14/2022 6:16:16 AM Referred By: REFERRED SELF Confirmed By:Mehran Arzate
[2022-10-14 07:37] LABS: Hematocrit (blood only) 37.1 % (40.1-51.0); Hemoglobin 12.6 g/dl (14.0-18.0); Mean Corpuscular Hemoglobin 31.6 pg (25.0-34.0); Mean Platelet Volume 10.8 fL (9.4-12.4); Platelet Count 143 K/uL (130-400); RDW Coefficient of Variation 12.6 % (11.5-14.5); RDW Standard Deviation 43.1 fL (36.4-46.3); Red Blood Count 3.99 M/uL (4.63-6.08); White Blood Count 15.66 K/ul (4.8-10.8)
[2022-10-14] MEDS: ALBUT/IPRATROP 3MG/0.5MG NEB 3 ML VIAL NEB SCH ×2 (07:50→11:25)
[2022-10-14 08:10] LABS: BUN Creatinine Ratio 28.7 (10-20); Calcium 8.5 mg/dl (8.5-10.1); Creatinine Clr Calc Pharmacy 97.5 ml/min; Est GFR (African American) 99.9 ml/min; Est GFR (Non-African American) 86.2 ml/min; Potassium 4.2 mmol/L (3.5-5.1)
[2022-10-14] MEDS: METOPROLOL TARTRATE 50 MG TAB PO SCH (08:19)
[2022-10-14] MEDS: BENZONATATE 100 MG CAPSULE PO SCH ×2 (08:19→13:43)
[2022-10-14] MEDS: guaiFENesin 600 MG TABCR PO SCH (08:19)
[2022-10-14] MEDS: dexAMETHasone 4 MG in SYRINGE 0 ML IV SCH (08:19)
[2022-10-14 10:13] LABS: Estimated Average Glucose 134 mg/dl; Hemoglobin A1C 6.3 % (4.5-5.6)
--- NOTE | 2022-10-14 12:55 | Discharge Summary ---
Date of Service date of admission - October 12, 2022 date of discharge - October 14, 2022 Admission HPI Per Admitting Provider 72yo male with history of LBBB and 2nd/3rd degree AV block, s/p pacemaker placement in 2007, HTN, long-standing hematuria with negative work-up, and 1 episode of PAF who presents with respiratory illness symptoms starting on Friday of this week. Initially started with runny nose, sore throat, and congestion. By Friday he had a cough, and as the week went on, the cough worsened. He ultimately developed yellow sputum production. Over the last 1-2 days he has had wheezing with mild dyspnea on exertion. Last evening he developed new-onset fever to 102.8 degrees. This was his first fever since he became sick. developed URI symptoms a few days after he did. He denies any h/o tobacco use or chronic lung disease. His encouraged him to seek medical attention this am due to the fever as well as dyspnea on exertion. In the ER today he tested + for RSV. He was also noted to have mild hypoxia to 89% sats in room air. During my visit he is on NC O2 and resting comfortably. He denies any loss of appetite this week. Denies any GI symptoms, headache, or myalgias. Principal Diagnosis RSV bronchitis Discharge Exam gen - NAD, looks very good; no respiratory distress mouth - MMM neck - no JVD heart - RRR, s1 s2, no murmur lungs - mild at best b/l wheezes -- MUCH improved from prior exams; scant b/l basilar fine rales, no increased work of breathing; airation wnl abd - soft NT ND BS+; no HSM ext - no edema, pulses 2+ b/l psych - a/o x 3 Discharge Data Allergies Allergy/AdvReac Type Severity Reaction Status Date / Time No Known Allergies Allergy Verified 10/15/22 14:41 Ordered Studies Chest X-Ray 10/12/22 06:37 XR chest 1V portable CLINICAL HISTORY: cough, fever, hypoxia COMPARISON STUDY: Chest radiograph and chest CT January 13, 2009. FINDINGS: Dual lead left subclavian pacer is in place. No pneumothorax or pleural effusion is noted. There is moderate cardiomegaly without evidence for pulmonary edema. There is no consolidation to suggest pneumonia. IMPRESSION: No acute cardiopulmonary findings. Cardiomegaly. ACT 112: Negative or not required by law. Electronically signed by: Thiago Laurent M.D. 10/12/2022 7:07 AM Chest X-Ray 10/13/22 07:00 XR chest 2V PA/lateral HISTORY: 72 years-old Male RSV bronchitis; check for developing pneumonia acute shortness of breath COMPARISON: 10/12/2022 TECHNIQUE: AP view of the chest FINDINGS: Left subclavian pacer. Cardiomegaly. No pneumothorax, pleural effusion, airspace consolidation or overt pulmonary edema. Bones of the chest appear grossly intact. IMPRESSION: Cardiomegaly without acute process. ACT 112: Negative or not required by law. The above report was generated using voice recognition software. It may contain grammatical, syntax or spelling errors. Electronically signed by: Paul Chen M.D. 10/13/2022 9:22 AM Hospital Course (1) RSV bronchitis: Patient required NC O2 on hospital day #1 for just several hours. He was treated with IV steroids, scheduled nebs, pulmonary toilet, and supportive care. CXR x 2 failed to show any complicating bacterial superinfection. He improved with the above measures. He will d/c home with a prednisone taper and take albuterol via spacer device. He was asked to continue pulmonary toilet with flutter valve, etc at home. (2) Hypoxia: 2nd to #1 above. Resolved. Again he only required NC O2 on hospital day #1 for several hours. From that point forward his O2 sats were 88-90% or higher in room air. On day of discharge his O2 sats with walking were >92% in room air. (3) Dyslipidemia: Not on medication for such. (4) Hypertension: Continue metoprolol 50mg BID. BPs acceptable while her. (5) Cardiac pacemaker: Placed many years ago for 2nd/3rd degree AV block. No recent issues with the device. Was largely paced on telemetry throughout the visit. (6) PAF (paroxysmal atrial fibrillation): Per his recollection he has had only 1 brief episode of such that was found on a pacemaker interrogation in the past. Continue beta kike. He is not on long-term anticoagulation. (7) Prediabetes: hemoglobin a1c was 6.3% he was counseled about the prediabetes and given handouts he should f/u with his PCP for this for ongoing surveillance Total Time Total Time Spent Total Time Spent (In Minutes): 40 Discharge Plan Discharge Items Patient Disposition: Home - Self-Care Reason For Visit: RSV BRONCHITIS Discharge Diagnosis: 1. RSV bronchitis 2. Pre-diabetes, hemoglobin a1c 6.3% Activity: As commented below Activity Comment: gradually increase your activities over the next week Exercise/Sports: Wait until after follow-up appointment Non-emergency contact: Primary Care Provider Call non-emergency contact if: you have any medication questions, your symptoms worsen and you have a fever Follow-up/Referrals: Robert Palacios III, CRNP [Primary Care Provider] - 10/21/22 4:00 pm Diet: Heart Healthy Addtl Attending Provider Instructions: Mr Holt- Griffin were hospitalized for RSV bronchitis. RSV is a common respiratory virus that causes illness in people of all ages. You have responded nicely to steroids & albuterol treatments. 2 x-rays did not show pneumonia. The cough will likely take another week or two to fully resolve. Please see [facility] RSV handout previously given. We also found that you have prediabetes. See handouts on such as well as the hemoglobin a1c test. Please follow-up with your family doctor for this. Recommendations - 1. take prednisone x 7 days starting TOMORROW 2. albuterol via plastic spacer - 2 puffs every 6 hours; I would take it regularly for the next 3-4 days, then use every 6 hours as needed 3. may use [id number] mucinex up to 1200mg twice daily for cough/congestion 4. may use [id number] delsym as desired for cough as well 5. while on the prednisone please STOP the naprosyn 6. follow-up 1 week with your family doctor Return to [facility] [address] if - * you develop recurrent fevers, especially if over 100.5 degrees * you have worsening shortness of breath * you have chest pain or chest tightness * any other concerns It was my pleasure to care for you! Happy holidays, Dr Garcia Pending Studies at Discharge: No Stand-Alone Forms: My [facility], Smoking Cessation Medications and DC Order Prescriptions: New albuterol sulfate [Ventolin HFA] 90 mcg/actuation HFA aerosol inhaler 2 inh inhalation Q6H PRN (Reason: shortness of breath or wheezing/cough) Qty: 6.7 0RF Label Comments: FOR NEXT COUPLE DAYS - HAD RSV OVER THE WEEKEND Rx Instructions: use with spacer device (DME) Aerochamber MV Spacer See Rx Instructions .Route Qty: 10 0RF Rx Instructions: As directed Continued metoprolol tartrate 50 mg tablet 50 mg PO BID Qty: 180 3RF Discontinued naproxen PO PRN No Action PreserVision AREDS [id number] Capsule 1 cap PO QAM Label Comments: COMPARABLE TO PERSERVISION, [facility] prednisone 10 mg tablet 10 mg PO UD Rx Instructions: start 10/15 - 4 tabs PO days 1/2; 3 tabs day 3/4; 2 tabs days 5/6; 1 tab day 7. take w/ food. lisinopril 5 mg tablet 5 mg PO QPM Discharge Orders: Discharge Order (Routine); Ordered 10/14/22 Ordered By: Eduin Alvarado/Other Patient Handouts: A1C, Prediabetes, Using an Inhaler with a Spacer Admission Data Admit Date/Time: 10/12/22 09:39 Attending Provider: Ediun Garcia Admit Provider: Eduin Garcia Primary Care Provider: Robert Palacios III Other Providers: Eduin Garcia Other Interventions: Discharge Summary Assessment (RN) Last Done: 10/14/22 12:57 Coding Level of Care Code D/C DAY MANAGEMENT >30 MINS Diagnoses RSV bronchitis J20.5 Hypoxia R09.02 Dyslipidemia E78.5 Hypertension I10 Hypertension type: primary hypertension Cardiac pacemaker Z95.0 PAF (paroxysmal atrial fibrillation) I48.0 Prediabetes R73.03
[2022-10-14] MEDS: ENOXAPARIN INJ 40 MG/0.4 ML SYR SQ SCH (13:43)
== END 2022-10-14 15:36 | disposition home or self-care (01) ==
LOC: ED 06:01 → INTOOBSV 09:39 → 2N 09:39

== ENCOUNTER 2022-11-22 07:49 | Observation (INO) ==
--- NOTE | 2022-10-17 10:01 | PAT Medication Instructions ---
Medication Instructions Date of Service October 17, 2022 Home Medications Medication Instructions Recorded metoprolol tartrate 50 mg tablet 50 mg PO BID #180 tabs 05/08/22 albuterol sulfate 90 mcg/actuation 2 inh inhalation Q6H PRN shortness 10/14/22 aerosol inhaler (Ventolin HFA) of breath or wheezing/cough #6.7 grams inhalational spacing device #10 ea 10/14/22 (Aerochamber MV spacer) metoprolol tartrate 50 mg tablet 50 mg PO BID albuterol sulfate 90 mcg/actuation aerosol inhaler (Ventolin HFA) 2 inh inhalation Q6H PRN shortness of breath or wheezing/cough lisinopril 5 mg tablet 5 mg PO QPM prednisone 10 mg tablet 10 mg PO UD PreserVision AREDS 1 cap PO QAM Continue as directed prednisone 10 mg tablet 10 mg PO UD STOP taking 2 weeks before surgery (or as soon as possible if surgery is within 2 weeks) PreserVision AREDS 1 cap PO QAM Take morning of surgery With a small sip of water, OTHERWISE NOTHING TO EAT OR DRINK AFTER MIDNIGHT: metoprolol tartrate 50 mg tablet 50 mg PO BID albuterol sulfate 90 mcg/actuation aerosol inhaler (Ventolin HFA) 2 inh inhalation Q6H PRN shortness of breath or wheezing/cough (use if needed; please bring rescue inhaler with you to hospital day of surgery if possible) Take evening before surgery metoprolol tartrate 50 mg tablet 50 mg PO BID albuterol sulfate 90 mcg/actuation aerosol inhaler (Ventolin HFA) 2 inh inhalation Q6H PRN shortness of breath or wheezing/cough (if needed) lisinopril 5 mg tablet 5 mg PO QPM Other Notes If you have any questions please call us at [phone] or [phone] or [phone] or [phone]
--- NOTE | 2022-10-22 11:45 | Anesthesiology Consultation ---
Date of Service October 22, 2022 Assessment & Plan (1) Encounter for pre-operative examination: Chart Review Chart Review: Acceptable Risk for Surgery (pending routine PCP follow up (11/11/22)) and Patient seen in Pre Admission Testing -Awaiting routine PCP appt scheduled 11/11/22 -Due to cardiac history- patient is NOT a Same Day Joint candidate Per PAT appt on 10/22/22, patient recently admitted to [facility] for RSV on 10/12/22; patient was negative for Covid on 10/12/22. Had symptoms of cough and fever that have resolved as of 10/22/22. Pt is vaccinated for Covid. Will leave to surgeon's discretion if preop Covid testing needed. Educated on importance of using Covid precautions one week prior to surgery Pt seen by EP 06/17/22= Seen for follow up. Dual-chamber pacemakerfull evaluation done todaybattery longevity remains acceptable, pacing and sensing thresholds are stable and there have been no significant arrhythmias since last evaluation. Complete heart blockpacer dependentventricular rate is controlled. Sinus node dysfunctionatrium is paced the majority time as well (69%). Atrial fibrillationnoted in the pastit has been borderline for whether he should be on anticoagulationno significant atrial fibrillation over the last yearwill not add AC as of now. HypertensionBP relatively controlled. Follow- up in 1 year. Teaching & Discussion Pre-Anesthesia Teaching/Discussion Notes: Instructed NPO after midnight before surgery,except medications with 15 cc of water. Medication instructions provided according to the PAT guidelines. History Surgery Operation Date: 11/22/22 08:10 Proposed Procedures p Right Total Knee Arthroplasty - Thom Li DO Height/Weight Height: 6 ft Weight: 112.6 kg Allergies Allergy/AdvReac Type Severity Reaction Status Date / Time No Known Allergies Allergy Verified 10/22/22 09:45 Medications Home Medications Medication Instructions Recorded Confirmed Last Taken metoprolol tartrate 50 mg tablet 50 mg PO BID #180 tabs 05/08/22 10/22/22 Unknown albuterol sulfate 90 mcg/actuation 2 inh inhalation Q6H PRN shortness 10/14/22 10/22/22 Unknown aerosol inhaler (Ventolin HFA) of breath or wheezing/cough #6.7 grams inhalational spacing device #10 ea 10/14/22 10/22/22 Unknown (Aerochamber MV spacer) lisinopril 5 mg tablet 5 mg PO QPM 10/16/22 10/22/22 Unknown vitamins A,C,P-bwaz-zcebmp 14,320 1 cap PO QAM 10/16/22 10/22/22 Unknown unit-226 mg-200 unit capsule (PreserVision AREDS) Past Medical History Medical History History of basal cell carcinoma REMOVED UNDER RIGHT EYE 10/02/22, ALMOST COMPLETELY - REMOVED BY [facility] History of kidney stones REMOTE HX History of SCC (squamous cell carcinoma) of skin HX Hypertension Left bundle-branch block CHRONIC Paroxysmal atrial fibrillation HX ISOLATED INCIDENT 2 YR AGO (NOTED INCIDENTALLY ON PACEMAKER CHECK) - NO RE-OCCURENCE , NO MEDICATION NEEDED Pre-diabetes HGB A1C 6.3 ON 10/14/22- RECENT RSV AND A1C ELEVATED - PCP PLANS TO RECHECK IN THREE MONTHS RSV infection RECENT HOSPITALIZATION [facility] - D/C'D OCT 14 2022 - F/U REUBEN PCP OCT 21 2022- FEELING BETTER- SYMPTOMS COMPLETELY RESOLVED Third degree AV block S/p pacemaker - last checked 08/2022 Unilateral deafness LEFT EAR (SINCE CHILDHOOD) Exercise / Class Metabolic Activity II 4-5 Yardwork/Stairs/Walk up hill (ONE FLIGHT OF STAIRS- NO CHEST PAIN OR SOB ) Past Family History Family History Sister Breast cancer Ovarian cancer Uncle Colorectal cancer Paternal Uncle Mother Myocardial infarction Diabetes Brother , Secondary to AAA rupture age 39 Aortic aneurysm Hypertension Diabetes Father Diabetes Other Heart disease Denies family history of Prostate cancer Past Surgical History Surgical History H/O wisdom tooth extraction History of colonoscopy S/P cardiac pacemaker procedure 04/19/08 /MEDTRONIC/LAST CHECK AUG 2022 TELEPHONE CALL IN PACER REPLACED ([employer]) 2015 Past Anesthesia History No Hx of Anesthesia Complications and No Family Hx of Anesthesia Complications History of PONV No Hx of PONV and No Hx of Motion Sickness Social History Smoking Status: Never smoker Do You Dip or Chew Tobacco: No Hx Alcohol Use: Yes Alcohol type: wine alcohol intake frequency: holidays/special occasions only Hx Substance Use: No substance use type: does not use Review of Systems - Occ snoring - no witnessed apnea- no hx of sleep study Patient denies chest pain, shortness of breath, dyspnea on exertion, reflux, cough, wheezing, palpitations. No hx of seizures, stroke, NM. No hx of blood clots or blood transfusions Physical Exam Vital Signs VITALS BP 135/71 P 66 TEMP 98.3 SP02 96% RESP 16 Constitutional no acute distress ENMT Mouth: no TMJ clicking Thyromental Distance: > or= 3.5 Finger Breadths (3.5) Mallampati Class: III Chipped right sided molars Crowns to molars Neck + limited neck extension Respiratory normal respiratory effort; no respiratory distress Auscultation: lungs clear to auscultation bilaterally; no wheezes Cardiovascular Rate/Rhythm: regular rate and regular rhythm Heart Sounds: no murmur Vessels: no carotid bruit Extra beat occ Musculoskeletal Spine: no pain with cervical ROM Extremities: extremities normal to inspection Psychiatric Orientation: alert Lab Results Anesthesia Preop Results Results Anesthesia Widget: WBC 12.16 K/ul (4.8-10.8) H 10/22/22 Hgb 14.1 g/dl (14.0-18.0) 10/22/22 Hct 41.9 % (40.1-51.0) 10/22/22 Plt 134 K/uL (130-400) 10/22/22 Na 141 mmol/L (136-145) 10/22/22 K 4.5 mmol/L (3.5-5.1) 10/22/22 Cl 105 mmol/L (98-107) 10/22/22 CO2 33 mmol/L (21-32) H 10/22/22 BUN 22 mg/dl (6-23) 10/22/22 Creat 0.86 mg/dl (0.6-1.4) 10/22/22 Glucose Level 85 mg/dl (70-99(Fasting)) 10/22/22 PT 10.9 Seconds (9.0-12.0) 10/22/22 PTT 23.6 Seconds (21.0-31.0) 10/22/22 INR 1.0 (0.9-1.1) 10/22/22 HA1c 6.3 % (4.5-5.6) H 10/14/22 Urine Color Yellow 10/12/22 Urine Appearance Clear (Clear) 10/12/22 Urine pH 6.0 (4.5-7.5) 10/12/22 Urine Specific Decker 1.020 (1.000-1.030) 10/12/22 Urine Protein Trace (Negative) H 10/12/22 Urine Glucose (UA) Negative (Negative) 10/12/22 Urine Ketones Negative (Negative) 10/12/22 Urine Blood 2+ (Negative) H 10/12/22 Urine Nitrite Negative (Negative) 10/12/22 Urine Bilirubin Negative (Negative) 10/12/22 Urine Urobilinogen Negative (Negative) 10/12/22 Urine Leukocyte Esterase Negative (Negative) 10/12/22 Urine WBC (Auto) 1-5 /hpf (0-5) 10/12/22 Urine RBC (Auto) 5-10 /hpf (0-4) H 10/12/22 Urine Hyaline Casts (Auto) 1-5 /lpf (0-5) 10/12/22 Urine Epithelial Cells (Auto) 5-10 /lpf (0-5) H 10/12/22 Urine Bacteria (Auto) Negative (Negative) 10/12/22 Blood Type A Positive 10/22/22 Antibody Screen NEGATIVE 10/22/22 Testing Laboratory Results - Mild leukocytosis- just finished prednisone 10/21/22 from RSV infection Electrocardiogram Date: 10/22/22 Poor data quality Atrial sensed ventricular paced rhythm at 67bpm Chest X-Ray Date: 10/13/22 FINDINGS: Left subclavian pacer. Cardiomegaly. No pneumothorax, pleural effusion, airspace consolidation or overt pulmonary edema. Bones of the chest appear grossly intact. IMPRESSION: Cardiomegaly without acute process. Other Testing Pacemaker check 08/27/22= Medtronic pacemaker. Normal parameters on batter and leads= 4-8 years. AP 63.8%, [employer]END[employer] 99.9%. 1 mode switch of atrial fib/flutter. COVID-19 Risk Screen Screening Information COVID-19 Screen Date: 10/22/22 Exposure 21 Days Family/Household +COVID Last 21 Days: No Exposure 10 Days Any COVID Exposure Last 10 Days: No Symptoms Last 10 Days Experienced COVID Sx Last 10 Days: Yes Sx Experienced Last 10 Days: Cough and Fever or Chills Were You Tested for COVID: Yes Date and Place of Test: [facility] 08/24= Covid negative Did You Notify Your Surgeon/PCP: Yes Did You Notify Your Surgeon/PCP Comment: Surgeon and PCP aware (pt admitted to [facility]) + COVID 0-90 Days COVID + in Last 0-90 Days: No Risk Plan COVID Risk Plan: Last 10D CoV Sx Patient Education COVID Preop Screening Education Complete: Yes
--- NOTE | 2022-11-21 14:50 | History & Physical Report ---
Date of Service November 21, 2022 Assessment & Plan (1) Osteoarthritis of right knee: We will proceed with a right total knee arthroplasty. Postoperatively he will be placed on aspirin for DVT prophylaxis and kept overnight in the hospital for postoperative medical management. He plans to use energy physical therapy upon discharge. History of Present Illness Chief Complaint: Osteoarthritis of the right knee. Primary Care Provider: Robert Palacios, III, DELANEY Liang is a pleasant 72-year-old male who has been dealing with chronic worsening right knee pain. X-rays have shown advanced osteoarthritis of the right knee. He has failed conservative treatment including multiple injections. He has elected to proceed with a right total knee arthroplasty. . Allergies Allergy/AdvReac Type Severity Reaction Status Date / Time No Known Allergies Allergy Verified 11/20/22 08:38 Home Medications Medication Instructions Recorded Confirmed Type metoprolol tartrate 50 mg tablet 50 mg PO BID #180 tabs 05/08/22 11/20/22 Rx lisinopril 5 mg tablet 5 mg PO QPM 10/16/22 11/20/22 History vitamins A,C,H-cvnh-ydgycf 14,320 1 cap PO QAM 10/16/22 11/20/22 History unit-226 mg-200 unit capsule (PreserVision AREDS) Past Med/Surg History Medical History Cardiac pacemaker Dyslipidemia History of basal cell carcinoma REMOVED UNDER RIGHT EYE 10/02/22, ALMOST COMPLETELY - REMOVED BY [facility] History of kidney stones REMOTE HX History of SCC (squamous cell carcinoma) of skin HX Hypertension Left bundle-branch block CHRONIC PAF (paroxysmal atrial fibrillation) Paroxysmal atrial fibrillation HX ISOLATED INCIDENT 2 YR AGO (NOTED INCIDENTALLY ON PACEMAKER CHECK) - NO RE-OCCURENCE , NO MEDICATION NEEDED Pre-diabetes HGB A1C 6.3 ON 10/14/22- RECENT RSV AND A1C ELEVATED - PCP PLANS TO RECHECK IN THREE MONTHS RSV bronchitis RSV infection RECENT HOSPITALIZATION [facility] - D/C'D OCT 14 2022 - F/U REUBEN PCP OCT 21 2022- FEELING BETTER- SYMPTOMS COMPLETELY RESOLVED Third degree AV block S/p pacemaker - last checked 08/2022 Unilateral deafness LEFT EAR (SINCE CHILDHOOD) Surgical History H/O wisdom tooth extraction History of colonoscopy S/P cardiac pacemaker procedure 04/19/08 /[employer]/LAST CHECK AUG 2022 TELEPHONE CALL IN PACER REPLACED ([employer]) 2015 Family History Sister Breast cancer Ovarian cancer Uncle Colorectal cancer Paternal Uncle Mother Myocardial infarction Diabetes Brother , Secondary to AAA rupture age 39 Aortic aneurysm Hypertension Diabetes Father Diabetes Other Heart disease Denies family history of Prostate cancer Social History Smoking Status: Never smoker Second Hand Exposure: No; Hx Alcohol Use: Yes Alcohol type: wine Alcohol Intake Frequency: Monthly or Less Hx Substance Use: No Preferred Language: Serbian Communication Ability: Effective Visual Impairment: No Limitations Hearing Ability: Hard of Hearing Certified Nuclear Medicine Technologist Required: No Beliefs That Will Affect Care: None marital status: Current Living Situation: Spouse current occupational status: retired current occupation: worked for [employer]; did [employer] ([employer]); also worked [employer] How many Children do You have: 1 How many Children do You have Comment: son Feels Safe at Home: Yes Childhood Exposure to Second-Hand Smoke: No Dental Care, Regularly: Yes Physical Activity Frequency: 3-4 Times per Week Seatbelt Use: always Sunscreen Use: Yes Assistive Devices: Glasses Review of Systems All systems reviewed & are unremarkable except as noted in HPI & below. Physical Exam On physical examination of the right knee, he has a slight varus deformity. He has range of motion from 0 to 120 degrees. He has no instability.. Constitutional WD/WN, vitals as above Eyes PERRL, conjunctivae normal, anicteric sclerae ENMT external ear and nose normal, oropharynx normal Neck trachea midline, no thyromegaly Respiratory normal respiratory effort, lungs clear to auscultation Cardiovascular RRR, no murmur, no edema Gastrointestinal (Abdomen) normal bowel sounds, soft, nontender, no hepatosplenomegaly Skin no rashes, warm and dry Psychiatric A+Ox3, euthymic affect Results & Data Results & Data Laboratory Results . Diagnostic Findings X-rays of the right knee show advanced osteoarthritis with joint space narrowing, osteophyte formation, and [id number] articulation. PG Care Time/CCT Total # of Minutes Spent Total Time Spent with Patient: Total time spent is greater than 50% in coordination of care (as documented) at patient's floor/unit and/or counseling patient: Coding Level of Care Code None Diagnoses Osteoarthritis of right knee M17.11
[~2022-11-22 07:49] MED LIST changes: +ACETAMINOPHEN 500 MG TAB PO SCH; +BUPIVACAINE 0.5 % 5 MG/1 ML PF 10ML VIAL ONE; -CIPR1TAB11 PO; +FAMOTIDINE 20 MG TAB PO SCH; +GABAPENTIN 300 MG CAP PO SCH; -LISI5TAB3 PO; +LR 500ML BOLUS, THEN 15ML/HR IV SCH; +LR 60ML/HR IV SCH; -METO50TA8 PO; -NAPR1TAB9 PO; +ORTHO JOINT MIX INFIL SCH; +ROPIVACAINE 0.5% 5 MG/ML 30 ML VIAL ONE; +TRANEXAMIC ACID 1,000 MG **IV Intra-op IV SCH; +TRANEXAMIC ACID 1,000 MG **IV Pre-op IV SCH; +ceFAZolin 2000MG 2,000 MG/15 ML SYR IV SCH; +dexAMETHasone 4 MG TAB PO SCH
[2022-11-22] MEDS ORDERED: PROPOFOL IV EMULSION 10 MG/ML 20 ML VIAL IV ONE ×3 (08:28→11:04)
[2022-11-22] MEDS ORDERED: LIDOCAINE 2% MPF LOCAL 5 ML VIAL INFIL ONE (08:28)
[2022-11-22] MEDS ORDERED: ONDANSETRON INJ 2 MG/ML 2 ML VIAL ONE (08:28)
[2022-11-22] MEDS ORDERED: MIDAZOLAM HCL 1 MG/ML 2ML VIAL ONE (08:29)
[2022-11-22] MEDS ORDERED: fentaNYL citrate 100 MCG/2 ML VIAL ONE (08:29)
[2022-11-22] MEDS ORDERED: PHENYLEPHRINE HCL 10 MG/ML VIAL ONE (09:07)
--- NOTE | 2022-11-22 09:08 | History & Physical Bridge Note ---
Date of Service November 22, 2022 History & Physical Bridge Note I have examined the patient, reviewed the History & Physical and in the interval since the performance of the History & Physical I have noted the following changes of clinical significance: no changes noted
[2022-11-22] MEDS ORDERED: ORTHO JOINT ANESTHETIC ONE (09:33)
[2022-11-22] MEDS ORDERED: ONDANSETRON INJ 2 MG/ML 2 ML VIAL IV PRN ×2 (09:39→12:22)
[2022-11-22] MEDS ORDERED: ATROPINE SULFATE 0.1 MG/ML 10ML SYR IV PRN (09:39)
[2022-11-22] MEDS ORDERED: fentaNYL citrate 100 MCG/2 ML VIAL IV PRN (09:39)
[2022-11-22] MEDS ORDERED: ePHEDrine sulfate 50 MG/ML AMP IV PRN (09:39)
--- NOTE | 2022-11-22 11:09 | Operative Report ---
PG Post Operative Report Pre & Post Diagnosis Operation Date: 11/22/22 10:30 Pre-Op Diagnosis: Degenerative Joint Disease, Right Knee Post-Op Diagnosis: Degenerative Joint Disease, Right Knee I identified the patient and participated in the time-out.: Yes Procedure Operation Date: 11/22/22 10:30 Actual Procedures p Right Total Knee Arthroplasty, Cemented(Right) - Thom Li DO Surgeon Thom Li DO Round Up Ring Hand Thom Stubbs PA-C Estimated Blood Loss 30 Findings Consistent with Post-Op Diagnosis Specimens Right femoral and tibial bone Description of Procedure Implants used: I used a Kirill Persona total knee arthroplasty system with a size 12 standard femur, G tibia, 34 oval patella, and a size 10 medial congruent polyethylene bearing. All components were cemented in place with Biomet cement. Liang arrived [facility] for the above procedure. He was seen in the preoperative holding area and the operative extremity was identified and signed. He was given a preoperative antibiotic, TXA, a spinal anesthetic and an adductor nerve block. He was taken back to the operating room and laid on the table in supine position. He was given basic sedation. The operative knee was then prepped and draped in sterile fashion. A timeout was done, and the patient and the operative extremity was properly identified. A midline incision was made directly over the patella. Dissection was taken down to the extensor mechanism. A midvastus arthrotomy was used. The medial retinaculum was released and the fat pad was mostly excised. The knee was flexed and the ACL, PCL, and meniscus were removed. A drill was sent down the center of the femoral canal followed by an intramedullary michael. Off that michael a distal femoral cutting block was placed. 9 mm was resected off the distal femur at 5 of valgus. A posterior referencing AP sizing guide was then placed on the distal femur. The femur measured to be a size 12. 2 drill holes were placed in 3 of external rotation. A 4-in-1 cutting block was then impacted into place. Anterior, posterior, and chamfer cuts were then made. The proximal tibia was then exposed. An external tibial alignment guide was placed. A tibial cut guide was then anchored in place and the proximal tibia was then resected. The posterior aspect of the knee was then opened up and any additional meniscus fragments and osteophytes were removed. The tibia measured to be a size G. The tibial plate was then placed in the appropriate rotation and the tibia was drilled and punched. Trial components were then placed. I used a size 10 medial congruent polyethylene insert. The knee was brought through a full range of motion and felt to be stable. The peg holes for the femoral component were then drilled. The patella was then everted and 9 mm was resected off the posterior aspect of the patella. The patella measured to be a size 34 oval. 3 peg holes were then drilled. A trial patella was placed. The knee was once again brought through a full range of motion and felt to be stable. Trial components were then removed. The surrounding soft tissues were injected with 100 cc of an orthopedic pain control cocktail. All components were then cemented into place with Biomet cement. The final polyethylene insert was then snapped into place. Once cement was dry the tourniquet was deflated. Hemostasis was obtained. A dilute betadyne lavage was then done for 3 minutes. The joint was then irrigated with normal saline solution. The subvastus arthrotomy was then closed with #1 Vicryl suture. The skin was closed with 2-0 Vicryl, 3-0V lock suture, and lyla. A soft compressive dressing was placed. He was then transferred to a hospital bed and taken to the postanesthesia care unit in stable condition. He tolerated the procedure well. Thom Stubbs PA-C, was present for the entire procedure. He was critical for patient positioning, prepping, draping, retraction exposure, wound closure and application of sterile dressing. I attest to the content of the Intraoperative Record and any orders documented therein. Any exceptions are noted below.
[2022-11-22] MEDS ORDERED: oxyCODONE HCL IR 5 MG TAB (IMMEDIATE RELEASE) PO PRN (12:22)
[2022-11-22] MEDS ORDERED: METOCLOPRAMIDE HCL INJ 5 MG/ML 2 ML VIAL IV PRN (12:22)
[2022-11-22] MEDS ORDERED: NALOXONE HCL 0.4 MG/1 ML VIAL/CARP IV PRN (12:22)
[2022-11-22] MEDS ORDERED: bisacodyL 10 MG SUPP PR PRN (12:22)
[2022-11-22] MEDS ORDERED: HYDROmorphone INJ 0.5 MG/0.5 ML SYR IV PRN (12:22)
[2022-11-22] MEDS ORDERED: MAGNESIUM HYDROXIDE SUSP 30 ML UDC PO PRN (12:22)
--- NOTE | 2022-11-22 12:28 | Anesthesiology Progress Note ---
Date of Service November 22, 2022 Anesthesia Post Procedure Vital Signs Vital Signs: Temp Pulse Resp BP Pulse Ox O2 Del Method O2 Flow Rate 11/22/22 12:00 97.7 F 63 18 106/72 94 Nasal Cannula 2 11/22/22 11:50 60 19 115/61 95 Room Air 11/22/22 11:40 63 15 112/64 97 Oxymask 9 11/22/22 11:31 96.8 F L 64 14 112/76 93 Oxymask 9 11/22/22 08:15 98.2 F 74 20 140/91 95 Room Air Pain Intensity Right Knee: Pain Intensity: 0 Transfer of Care Handoff Completed per policy Notes Mental Status: alert / awake / arousable and participated in evaluation Patient Amnestic to Procedure: Yes Nausea / Vomiting: adequately controlled Pain: adequately controlled Airway Patency, RR, SpO2: stable & adequate BP & HR: stable & adequate Hydration State: stable & adequate Neuraxial Anesthesia: was administered and sensory block is resolving Anesthetic Complications: no major complications apparent and Pt Satisfied with anesthetic care
[2022-11-22] MEDS: SODIUM CHLORIDE 0.9% 1000ML 1,000 ML IV SCH ×2 (12:56→22:27)
[2022-11-22] MEDS: KETOROLAC TROMETHAMINE 15 MG/ML VIAL IV SCH ×2 (12:58→18:34)
--- NOTE | 2022-11-22 13:03 | XRay Report ---
RIGHT KNEE 2 VIEWS History: Right total knee arthroplasty. Degenerative arthritis. Postop. FINDINGS: The patient is status post a right total knee arthroplasty. The hardware is intact. No frac ture or dislocation. Skin lyla are in place. IMPRESSION: Right total knee arthroplasty. No evidence for hardware complication. ACT 112: Negative or not required by law. Electronically signed by: Carlos Patterson M.D. 11/22/2022 1:02 PM
[2022-11-22] MEDS: ACETAMINOPHEN 500 MG TAB PO SCH (16:54)
[2022-11-22] MEDS: ceFAZolin 2000MG 2,000 MG/15 ML SYR IV SCH (18:31)
[2022-11-22] MEDS: DOCUSATE SODIUM 100 MG CAP PO SCH (20:30)
[2022-11-22] MEDS: ASPIRIN 81 MG ECTAB PO SCH (20:30)
[2022-11-22] MEDS: METOPROLOL TARTRATE 50 MG TAB PO SCH (20:31)
[2022-11-22] MEDS ORDERED: SENNA 8.6 MG TAB PO SCH (21:00)
[2022-11-22] MEDS ORDERED: lisinopril 5 MG TAB PO SCH (21:00)
[2022-11-23] MEDS: ACETAMINOPHEN 500 MG TAB PO SCH ×2 (01:07→09:07)
[2022-11-23] MEDS: KETOROLAC TROMETHAMINE 15 MG/ML VIAL IV SCH ×2 (01:07→06:02)
[2022-11-23] MEDS: ceFAZolin 2000MG 2,000 MG/15 ML SYR IV SCH (01:09)
--- NOTE | 2022-11-23 06:59 | Orthopedic Progress Note ---
Date of Service November 23, 2022 Assessment & Plan (1) Status post right knee replacement: Overall he is doing very well. He is not having much pain in the right knee. He will be seen by physical therapy today for ambulation and range of motion exercises. The nursing staff can change his dressing after physical therapy. He is on aspirin for DVT prophylaxis. He can be discharged home later today. He will follow-up orthopedics in 2 weeks. Berhane Tavera was seen and examined at bedside this morning. Overall he is doing very well. He is not having much pain in the right knee. He has been up and ambulating to the bathroom. He has no complaints.. Review of Systems All systems reviewed & are unremarkable except as noted in HPI & below. Physical Exam On physical examination of the right knee, the dressing is clean and dry. His leg is out full extension. He has active dorsiflexion plantarflexion of the right ankle.. Results & Data Results & Data Laboratory Results . Diagnostic Findings Postoperative x-rays of the right knee show the prosthesis to be in anatomic alignment without any evidence of fracture, desiccation, or loosening.. PG Care Time/CCT Total # of Minutes Spent Total Time Spent with Patient: Total time spent is greater than 50% in coordination of care (as documented) at patient's floor/unit and/or counseling patient: Coding Level of Care Code 96002 Post Operative Follow-Up Diagnoses Status post right knee replacement Z96.651
--- NOTE | 2022-11-23 07:00 | Discharge Summary ---
Date of Service November 23, 2022 Admission HPI (Per Admitting) Liang is a pleasant 72-year-old male who has been dealing with chronic worsening right knee pain. X-rays have shown advanced osteoarthritis of the right knee. He has failed conservative treatment including multiple injections. He has elected to proceed with a right total knee arthroplasty. . Admission Exam (Per Admitting) On physical examination of the right knee, he has a slight varus deformity. He has range of motion from 0 to 120 degrees. He has no instability.. Principal Diagnosis Same as "Discharge Diagnosis" noted below under Discharge Instructions. Discharge Exam On physical examination of the right knee, the dressing is clean and dry. His leg is out full extension. He has active dorsiflexion plantarflexion of the right ankle.. Discharge Data Procedures Performed Operation Date: 11/22/22 10:30 Actual Procedures p Right Total Knee Arthroplasty, Cemented(Right) - Thom Li DO Ordered Studies 11/22/22 05:00 US - OR guided needle placemen Routine Hospital Course (1) Status post right knee replacement: On November 22, 2022 Liang arrived at [facility] and underwent a right knee replacement without complication. He had a spinal anesthetic. Postoperatively he was started on aspirin for DVT prophylaxis and transferred to the general orthopedic floors. His hospital course was uneventful. On postop day #1, his vital signs were stable and his pain was well controlled. He was able to participate well with physical therapy doing ambulation and range of motion exercises. He was then discharged home. He will follow-up with orthopedics in 2 weeks. PG Care Time/CCT Total # of Minutes Spent Total Time Spent with Patient: Total time spent is greater than 50% in coordination of care (as documented) at patient's floor/unit and/or counseling patient: Discharge Plan Discharge Items Patient Disposition: Home - Home Health Services Reason For Visit: DJD Knee Right Discharge Diagnosis: Right knee replacement Activity: Per Instructions section Non-emergency contact: Surgeon Call non-emergency contact if: your wound has increased redness and your wound has increased drainage Follow-up/Referrals: Robert Palacios III, CRNP [Primary Care Provider] - Diet: Regular Addtl Attending Provider Instructions: Activity and Therapy Recommendations: * If you are using [facility] then therapy will be provided at your home until they feel you have accomplished all of your goals. * If you are using [facility] then Physical Therapy will be provided until they feel you are ready to start Outpatient Physical Therapy. * If you are not using home therapy then Outpatient Physical Therapy should start about 3-5 days from your day of surgery. Therapy will last about 6-10 weeks * It is important not to put a pillow under your knee when you are relaxing or sleeping. It is just as important to make sure you are getting your knee perfectly straight as it is to regain your knee bend. * You were shown a series of exercises in the hospital. Do these exercises three times each day including the exercises you were shown in physical therapy. * Get up and walk several times each day. For the first four weeks, try not to stand or walk for more than one hour at a time. If you do stand or walk for more than one hour, you will not hurt anything, but your leg will likely swell. * As you feel comfortable, you may change from the walker or crutches to a cane and then to independent walking. Medications: * Narcotic You will likely be sent home from the hospital with a prescription for the narcotic pain medication that worked best throughout your stay. * Aspirin Most patients will be required to take Aspirin 81mg twice a day for 6 weeks after surgery. This is obtained [id number] and a prescription is not necessary. * Other medications may be prescribed for specific circumstances. If you have any questions, please call the office at . * Resume previous home medications unless otherwise instructed TEDs/Elastic Stockings: The white elastic stockings help limit swelling and prevent blood clots from forming in your legs.~ The more you wear them, the more they work. Wear them for six weeks. Dressing Care: The dressing can be changed after physical therapy on postop day #1. Daily dry dressing changes for a few days, especially if the incision is still draining some. If the incision is not draining then you may leave the lyla open to air. If there is a little bit of drainage or if the lyla are getting stuck on your clothing then cover the incision with a dry dressing. The lyla will be removed at your 2 week follow-up appointment. Showering: You may shower 5 days from the day of surgery as long as the incision is no longer draining. You may shower with the lyla exposed. Let soapy water run over the lyla and pat them dry. Do not scrub or soak the incision. Things To Watch For: * Drainage from the incision site that occurs more than one week after your surgery. * Increased redness at the incision site. * Fever above 102 degrees Fahrenheit. * Unusual chest pain or shortness of breath. * Call [facility] at with any of the above problems Follow-Up Visit: Follow-up with Dr. Li's PA (Thom Stubbs) 2-3 weeks after your day of surgery. He will remove your lyla and answer any questions. If you have any additional questions or concerns, Dr Li is usually in the office at the same time and will be available An appointment was probably scheduled when you signed-up for surgery in the office. If you have any questions call Office Instructions: More detailed instructions as well as Frequently Asked Questions were provided in a folder by our office when you signed-up for surgery. Please review these instructions when you get home. If you have any further questions or concerns, please feel free to call the office at [phone] Pending Studies at Discharge: No Stand-Alone Forms: My [facility], Smoking Cessation Medications and DC Order Prescriptions: New aspirin 81 mg Tablet,Delayed Release (Dr/Ec) 81 mg PO BID 42 Days Qty: 84 0RF oxycodone-acetaminophen 5-325 mg tablet 1 tab PO Q6H PRN (Reason: pain) Qty: 30 0RF Continued PreserVision AREDS [id number] Capsule 1 cap PO QAM Label Comments: COMPARABLE TO PERSERVISION, [facility] lisinopril 5 mg tablet 5 mg PO QPM metoprolol tartrate [Lopressor] 50 mg tablet 50 mg PO BID acetaminophen [Tylenol Extra Strength] 500 mg Tablet 500 mg PO Q6H PRN (Reason: Pain) Admission Data Admit Date/Time: 11/22/22 11:32 Attending Provider: Thom Li Admit Provider: Thom Li Primary Care Provider: Robert Palacios III
[2022-11-23] MEDS ORDERED: dexAMETHasone 4 MG TAB PO SCH (08:00)
[2022-11-23] MEDS ORDERED: MULTIVITAMIN TAB PO SCH (09:00)
[2022-11-23] MEDS: ASPIRIN 81 MG ECTAB PO SCH (09:06)
[2022-11-23] MEDS: METOPROLOL TARTRATE 50 MG TAB PO SCH (09:07)
[2022-11-23] MEDS: DOCUSATE SODIUM 100 MG CAP PO SCH (09:07)
== END 2022-11-23 11:44 | disposition home health service (06) ==
LOC: 3W 07:49 → ASU 07:49
DX: M17.11 Unilateral primary osteoarthritis, right knee; E66.9 Obesity, unspecified; Z95.0 Presence of cardiac pacemaker; Z79.899 Other long term (current) drug therapy; Z68.33 Body mass index [BMI] 33.0-33.9, adult

== ENCOUNTER 2025-01-17 06:48 | Observation (INO) ==
--- NOTE | 2024-12-21 10:41 | PAT Medication Instructions ---
Medication Instructions Date of Service December 21, 2024 Home Medications Medication Instructions Recorded metoprolol succinate 100 mg 100 mg PO QAM #90 tabs 02/17/24 tablet,extended release 24 hr simvastatin 20 mg tablet 20 mg PO QPM #90 tabs 11/01/24 vitamins A,C,D-ohml-sqrcrr 4,296 mcg-226 mg-90 mg capsule (PreserVision AREDS) 1 cap PO QAM acetaminophen 500 mg tablet (Tylenol Extra Strength) 500 mg PO Q6H PRN Pain aspirin 81 mg tablet,delayed release (Adult Low Dose Aspirin) 81 mg PO QAM metoprolol succinate 100 mg tablet,extended release 24 hr 100 mg PO QAM simvastatin 20 mg tablet 20 mg PO QPM ASK your prescriber and surgeon aspirin 81 mg tablet,delayed release (Adult Low Dose Aspirin) 81 mg PO QAM STOP taking 2 weeks before surgery (or as soon as possible if surgery is within 2 weeks) vitamins A,C,L-bldy-xcotqq 4,296 mcg-226 mg-90 mg capsule (PreserVision AREDS) 1 cap PO QAM Take morning of surgery With a small sip of water, OTHERWISE NOTHING TO EAT OR DRINK AFTER MIDNIGHT: acetaminophen 500 mg tablet (Tylenol Extra Strength) 500 mg PO Q6H PRN Pain (if needed) metoprolol succinate 100 mg tablet,extended release 24 hr 100 mg PO QAM Take evening before surgery acetaminophen 500 mg tablet (Tylenol Extra Strength) 500 mg PO Q6H PRN Pain (if needed) simvastatin 20 mg tablet 20 mg PO QPM Other Notes If you have any questions please call us at [phone] or [phone] or [phone] or [phone]
--- NOTE | 2024-12-28 13:03 | Anesthesiology Consultation ---
Date of Service December 28, 2024 Assessment & Plan (1) Encounter for pre-operative examination: - Infectious disease screening: Per assessment on 12/28/24- No known recent infectious disease contacts or current infectious disease symptoms. - Outpatient joint assessment: Pt currently scheduled for inpatient pathway. If surgeon requests review for outpatient joint pathway, patient is not recommended acceptable candidate for outpatient joint program from anesthesia standpoint based on available information. - S/P Right TKA (11/22/22): SAB at L3/4 (1 attempt) + regional at [facility] [place] Cardiology/EP visit (02/17/24): "Battery and lead characteristics are stable. Significant arrhythmias were not identified by the device since last evaluation. His overall heart rate is somewhat elevated and part of this appears to be pacing had a somewhat elevated heart rate, I did reduce his rate responsive settings to minimize this.. Aortic root dilatation: He has not had an echocardiogram in 6 months and I am going to repeat that now.. Cardiomyopathy: He is on minimal medications for his cardiomyopathy currently, however his left ventricular function has improved substantially consistent with left bundle branch block causing his cardiomyopathy. I am going to continue his current medical regimen and repeat the echocardiogram at this time.. Complete heart block: He has complete heart block and is pacemaker dependent, with a biventricular device in place he is feeling well.. He has had atrial fibrillation identified in the past but his burden is quite low and we had decided not to continue anticoagulation. He also had an atrial appendage clip. He has not had recurrent atrial fibrillation identified (his pacemaker should be very good at identifying it if it is present) so I would continue without anticoagulation. We do monitor for that remotely as well.. Follow Up: 1 Year" - [facility] Cardiothoracic surgery (09/29/24): "Thoracic ascending aortic aneurysm.. Chronic condition, stable.. Will schedule CTA angio of the chest in 1 year..Medications were reviewed and no changes were made.. s/p ascedning aortic replacement.. s/p aortic valve replacement with tissue.." Recommendations to refrain from heavy lifting and exercises involving sustained Valsalva maneuver. Avoidance of fluoroquinolone medications. - PCP visit (12/22/24): "74-year-old gentleman with right testicular pain which has previously been treated as UTI by his prior PCP. He did have a similar episode 6 weeks ago which resolved after 2 of 5 days of antibiotic and just recurred 5 days ago. He may have had some residual bacteria which did not clear with the short course of antibiotics. I would recommend treating him with a 14- day course of antibiotics. If he again has recurrence of the symptoms, I would recommend evaluation by urology. No other changes at this time. Follow-up as scheduled and as needed for new or worsening symptoms." > Patient seen at [facility] 12/28/24- he states that right testicular pain is improving on abx (still ~1 week remaining, to be completed prior to surgery). Patient advised to contact surgeon/PAT if symptoms not resolved after completion of abx. - Patient was originally scheduled for routine Echo to be done shortly after surgery. [facility] and was able to r/s to before surgery. Awaiting upcoming Echo ([facility], 01/06). Patient otherwise acceptable risk for surgery. Chart Review Chart Review: Patient seen in Pre Admission Testing Teaching & Discussion Pre-Anesthesia Teaching/Discussion Notes: Instructed NPO after midnight before surgery,except medications with 15 cc of water. Medication instructions provided according to the [facility] guidelines. History Surgery Operation Date: 01/17/25 12:00 Proposed Procedures p Left Total Knee Arthroplasty - Thom Li, Height/Weight Height: 6 ft Weight: 115.8 kg Allergies Allergy/AdvReac Type Severity Reaction Status Date / Time Fluoroquinolones AdvReac Avoid per Uncoded 12/28/24 13:00 cardiothoracic surgery records Medications Home Medications Medication Instructions Recorded Confirmed Last Taken vitamins A,C,L-kndv-ahlvvz 4,296 1 cap PO QAM 10/16/22 12/22/24 09/09/23 mcg-226 mg-90 mg capsule (PreserVision AREDS) acetaminophen 500 mg tablet 500 mg PO Q6H PRN Pain 11/22/22 12/22/24 11/20/22 (Tylenol Extra Strength) aspirin 81 mg tablet,delayed 81 mg PO QAM 05/13/23 12/22/24 09/09/23 release (Adult Low Dose Aspirin) metoprolol succinate 100 mg 100 mg PO QAM #90 tabs 02/17/24 12/22/24 Unknown tablet,extended release 24 hr simvastatin 20 mg tablet 20 mg PO QPM #90 tabs 11/01/24 12/22/24 Unknown sulfamethoxazole 800 1 tab PO Q12H 14 days #28 tabs 12/22/24 12/22/24 Unknown mg-trimethoprim 160 mg tablet (Bactrim DS) Past Medical History Medical History Aortic root dilation s/p AVR, aortic root and ascending aorta replacement, LA RFA ablation, BRENNON li gation (2022) Ascending aortic aneurysm s/p AVR, aortic root and ascending aorta replacement, LA RFA ablation, BRENNON ligation (2022) Cardiac pacemaker Biventricular Medtronic 03/2023 Follows with [facility] cardio Cardiomyopathy Dyslipidemia History of basal cell carcinoma Right eye, BCC excision History of COVID-19 12/2022 History of kidney stones Remote hx History of SCC (squamous cell carcinoma) of skin Hx HTN (hypertension) Left bundle-branch block Chronic Osteoarthritis Paroxysmal atrial fibrillation s/p LA RFA ablation, BRENNON ligation (2022) Pre-diabetes Patient denies HGBA1C 11/08/24 6.0% Sinus node dysfunction Third degree AV block S/p pacemaker Unilateral deafness Left ear (since childhood) Exercise / Class Metabolic Activity II 4-5 Yardwork/Stairs/Walk up hill (one FS: no CP, no SOB) Past Family History Family History Sister Breast cancer Ovarian cancer Uncle Colorectal cancer Paternal Uncle Mother Myocardial infarction Diabetes Brother , Secondary to AAA rupture age 39 Aortic aneurysm Hypertension Diabetes Father Diabetes Other Heart disease Denies family history of Prostate cancer Past Surgical History Surgical History H/O wisdom tooth extraction History of colonoscopy History of left cataract extraction S/P aortic valve replacement and aortoplasty left atrial ablation and atrial appendix ligation, and replaced his pacer 03/10/2023 S/P ascending aortic aneurysm repair S/P cardiac pacemaker procedure S/P knee replacement Right TKA (11/22/22): SAB at L3/4 (1 attempt) + regional at [facility] S/P right cataract extraction Past Anesthesia History No Hx of Anesthesia Complications and No Family Hx of Anesthesia Complications History of PONV No Hx of PONV and No Hx of Motion Sickness Social History Smoking Status: Never smoker Do You Dip or Chew Tobacco: No Hx Alcohol Use: Yes Alcohol type: beer alcohol intake frequency: holidays/special occasions only Hx Substance Use: No substance use type: does not use Review of Systems Patient denies chest pain, shortness of breath, dyspnea on exertion, fever, chills, cough, wheezing, palpitations. Physical Exam Vital Signs BP 127/71 P 73 TEMP 97.9 SP02 95%RA RESP 18 Physical Full cervical extension range of motion. Full TMJ range of motion. TMD 3 finger breaths Mallampati Score III Dentition: missing molars, + several caps Lungs: clear throughout to auscultation Cardiac: regular rate and rhythm, III-IV/ systolic murmur Spine: normal Carotid arteries: negative bruit Extremities: no LE edema Lab Results Anesthesia Preop Results Results Anesthesia Widget: WBC 8.20 K/ul (4.8-10.8) 12/28/24 Hgb 14.8 g/dl (14.0-18.0) 12/28/24 Hct 43.0 % (42.0-52.0) 12/28/24 Plt 115 K/uL (130-400) L 12/28/24 Na 138 mmol/L (136-145) 12/28/24 K 4.8 mmol/L (3.5-5.1) 12/28/24 Cl 103 mmol/L (98-107) 12/28/24 CO2 30 mmol/L (21-32) 12/28/24 BUN 21 mg/dl (6-23) 12/28/24 Creat 1.07 mg/dl (0.6-1.4) 12/28/24 Glucose Level 139 mg/dl (70-99(Fasting)) H 12/28/24 PT 10.9 Seconds (9.0-12.0) 12/28/24 PTT 27 Seconds (21-31) 12/28/24 INR 1.0 (0.9-1.1) 12/28/24 TSH 2.956 uIu/ml (0.300-4.500) 11/08/24 HA1c 6.0 % (4.5-5.6) H 11/08/24 Blood Type A Positive 12/28/24 Antibody Screen NEGATIVE 12/28/24 Testing Electrocardiogram Date: 12/28/24 Atrial-sensed ventricular-paced rhythm at 72bpm. Biventricular pacemaker detected. Chest X-Ray Date: 12/28/24 FINDINGS: There is interval cardiac valve repair. Left-sided pacemaker has been revised. Stable mild cardiomegaly without pulmonary vascular congestion. No effusion, consolidation, or pneumothorax. IMPRESSION: No acute findings. Echocardiogram Date: 03/22/24 EF 45-50%. Distal inferior, distal inferior septal and mid anteroseptum hypokinesis. Severe concentric LVH. Mild RVD. Mild LAD. Bioprosthetic aortic valve with appropriate transvalvular gradient. Mild MR. No significant change from prior study 07/17/2023 per report. Other Testing Pacer check Date: 11/09/24 AP 44.2%. [employer] M[employer] 100%. Battery longevity 7.2 years. Atrial burden less than 0.1%.
[~2025-01-17 06:48] MED LIST changes: -ACETAMINOPHEN 500 MG TAB PO SCH; -FAMOTIDINE 20 MG TAB PO SCH; -GABAPENTIN 300 MG CAP PO SCH; -LR 500ML BOLUS, THEN 15ML/HR IV SCH; -LR 60ML/HR IV SCH; -ORTHO JOINT MIX INFIL SCH; -TRANEXAMIC ACID 1,000 MG **IV Intra-op IV SCH; -TRANEXAMIC ACID 1,000 MG **IV Pre-op IV SCH; -ceFAZolin 2000MG 2,000 MG/15 ML SYR IV SCH; -dexAMETHasone 4 MG TAB PO SCH
[2025-01-17] MEDS: LR 500ML BOLUS, THEN 15ML/HR IV SCH (07:25)
[2025-01-17] MEDS: dexAMETHasone**PF** 10 MG/ML VIAL IV SCH (07:26)
[2025-01-17] MEDS: GABAPENTIN 300 MG CAP PO SCH (07:27)
[2025-01-17] MEDS: LR 60ML/HR IV SCH (07:27)
[2025-01-17] MEDS: ACETAMINOPHEN 500 MG TAB PO SCH ×2 (07:27→14:03)
[2025-01-17] MEDS: FAMOTIDINE 20 MG TAB PO SCH (07:27)
[2025-01-17] MEDS ORDERED: MIDAZOLAM HCL 1 MG/ML 2ML VIAL ONE (08:16)
--- NOTE | 2025-01-17 08:23 | History & Physical Bridge Note ---
Date of Service January 17, 2025 History & Physical Bridge Note I have examined the patient, reviewed the History & Physical and in the interval since the performance of the History & Physical I have noted the following changes of clinical significance: no changes noted
[2025-01-17] MEDS ORDERED: fentaNYL citrate PF 100 MCG/2 ML VIAL ONE (08:25)
[2025-01-17] MEDS: TRANEXAMIC ACID 1,000 MG **IV Pre-op IV SCH (08:29)
[2025-01-17] MEDS ORDERED: PROPOFOL IV EMULSION 10 MG/ML 20 ML VIAL IV ONE (08:38)
[2025-01-17] MEDS: ceFAZolin 2000MG 2,000 MG/15 ML SYR IV SCH ×2 (08:50→16:02)
[2025-01-17] MEDS: ROPIV 0.5% 246mg, Ketorolac 30mg, EPINEPHrine 0.5mg in NSS INFIL SCH (09:18)
[2025-01-17] MEDS: ORTHO JOINT ANESTHETIC ONE (09:19)
[2025-01-17] MEDS: TRANEXAMIC ACID 1,000 MG **IV Intra-op IV SCH (09:45)
--- NOTE | 2025-01-17 10:02 | Operative Report ---
PG Post Operative Report Pre & Post Diagnosis Operation Date: 01/17/25 08:40 Pre-Op Diagnosis: Left Knee Arthritis Post-Op Diagnosis: Left Knee Arthritis I identified the patient and participated in the time-out.: Yes Procedure Operation Date: 01/17/25 08:40 Actual Procedures p Left Total Knee Arthroplasty(Left) - Thom Li DO Surgeon Thom Li DO Project Safety Manager Oleksandr Aguirre PA-C Estimated Blood Loss 50 Findings Consistent with Post-Op Diagnosis Specimens Left femoral and tibial bone Description of Procedure Implants used: I used a Kirill Persona total knee arthroplasty system with a size 11 standard femur, G tibia, 37 oval patella, and a size 12 medial congruent polyethylene bearing. All components were cemented in place with Biomet cement. Liang arrived [facility] for the above procedure. He was seen in the preoperative holding area and the operative extremity was identified and signed. He was given a preoperative antibiotic, TXA, a spinal anesthetic and an adductor nerve block. He was taken back to the operating room and laid on the table in supine position. He was given basic sedation. The operative knee was then prepped and draped in sterile fashion. A timeout was done, and the patient and the operative extremity was properly identified. A midline incision was made directly over the patella. Dissection was taken down to the extensor mechanism. A medial parapatellar arthrotomy was used. The medial retinaculum was released and the fat pad was mostly excised. The knee was flexed and the ACL, PCL, and meniscus were removed. A drill was sent down the center of the femoral canal followed by an intramedullary imchael. Off that michael a distal femoral cutting block was placed. 9 mm was resected off the distal femur at 5 of valgus. A posterior referencing AP sizing guide was then placed on the distal femur. The femur measured to be a size 11. 2 drill holes were placed in 3 of external rotation. A 4-in-1 cutting block was then impacted into place. Anterior, posterior, and chamfer cuts were then made. The proximal tibia was then exposed. An external tibial alignment guide was placed. A tibial cut guide was then anchored in place and the proximal tibia was then resected. The posterior aspect of the knee was then opened up and any additional meniscus fragments and osteophytes were removed. The tibia measured to be a size G. The tibial plate was then placed in the appropriate rotation and the tibia was drilled and punched. Trial components were then placed. I used a size 12 medial congruent polyethylene insert. The knee was brought through a full range of motion and felt to be stable. The peg holes for the femoral component were then drilled. The patella was then everted and 9 mm was resected off the posterior aspect of the patella. The patella measured to be a size 37 oval. 3 peg holes were then drilled. A trial patella was placed. The knee was once again brought through a full range of motion and felt to be stable. Trial components were then removed. The surrounding soft tissues were injected with 100 cc of an orthopedic pain control cocktail. All components were then cemented into place with Biomet cement. The final polyethylene insert was then snapped into place. Once cement was dry the tourniquet was deflated. Hemostasis was obtained. A dilute betadyne lavage was then done for 3 minutes. The joint was then irrigated with normal saline solution. The medial parapatellar arthrotomy was then closed with #1 Vicryl suture. The skin was closed with 2-0 Vicryl, 3-0V lock suture, and lyla. A soft compressive dressing was placed. He was then transferred to a hospital bed and taken to the postanesthesia care unit in stable condition. He tolerated the procedure well. Oleksandr Aguirre PA-C, was present for the entire procedure. He was critical for patient positioning, prepping, draping, retraction exposure, wound closure and application of sterile dressing. I attest to the content of the Intraoperative Record and any orders documented therein. Any exceptions are noted below.
--- NOTE | 2025-01-17 10:31 | XRay Report ---
XR knee LT 1 or 2V routine CLINICAL HISTORY: Surgical Post Op COMPARISON: None FINDINGS: Left knee prosthesis shows no hardware complication. There is expected soft tissue gas. Sk in lyla are present. IMPRESSION: Unremarkable postoperative exam. ACT 112: Negative or not required by law. Electronically signed by: Sandeep Vigil M.D. 01/17/2025 10:30 AM
[2025-01-17] MEDS ORDERED: bisacodyL 10 MG SUPP PR PRN (11:30)
[2025-01-17] MEDS ORDERED: METOCLOPRAMIDE HCL INJ 5 MG/ML 2 ML VIAL IV PRN (11:30)
[2025-01-17] MEDS ORDERED: NALOXONE HCL 0.4 MG/1 ML VIAL/CARP IV PRN (11:30)
[2025-01-17] MEDS ORDERED: ONDANSETRON INJ 2 MG/ML 2 ML VIAL IV PRN (11:30)
[2025-01-17] MEDS ORDERED: MAGNESIUM HYDROXIDE SUSP 30 ML UDC PO PRN (11:30)
[2025-01-17] MEDS: KETOROLAC TROMETHAMINE 15 MG/ML VIAL IV SCH (11:47)
--- NOTE | 2025-01-17 12:18 | Anesthesiology Progress Note ---
Date of Service January 17, 2025 Anesthesia Post Procedure Vital Signs Vital Signs: Temp Pulse Resp BP BP Pulse Ox O2 Del Method 01/17/25 12:00 36.4 C 63 134/74 95 Room Air 01/17/25 11:31 36.5 C 64 18 143/82 H 96 Room Air 01/17/25 11:15 36.4 C L 62 21 110/77 94 Room Air 01/17/25 11:05 61 15 125/81 96 Room Air 01/17/25 10:55 61 18 123/69 94 Room Air 01/17/25 10:45 61 21 106/68 94 Room Air 01/17/25 10:35 63 20 114/69 96 Room Air 01/17/25 10:25 61 17 126/58 L 100 Oxymask 01/17/25 10:15 36.7 C 63 24 108/57 L 99 Oxymask 01/17/25 07:07 36.8 C 89 18 165/87 H 97 Room Air O2 Flow Rate 01/17/25 12:00 01/17/25 11:31 01/17/25 11:15 01/17/25 11:05 01/17/25 10:55 01/17/25 10:45 01/17/25 10:35 01/17/25 10:25 4 01/17/25 10:15 6 01/17/25 07:07 Notes Mental Status: alert / awake / arousable Patient Amnestic to Procedure: Yes Nausea / Vomiting: adequately controlled Pain: adequately controlled Airway Patency, RR, SpO2: stable & adequate BP & HR: stable & adequate Hydration State: stable & adequate Neuraxial Anesthesia: was administered and sensory block is resolving Anesthetic Complications: no major complications apparent
[2025-01-17] MEDS: HYDROmorphone INJ 0.5 MG/0.5 ML SYR IV PRN (18:02)
[2025-01-17] MEDS: ASPIRIN 81 MG ECTAB PO SCH (20:27)
[2025-01-17] MEDS: SIMVASTATIN 20 MG TAB PO SCH (20:27)
[2025-01-17] MEDS: DOCUSATE SODIUM 100 MG CAP PO SCH (20:27)
[2025-01-17] MEDS: SENNA 8.6 MG TAB PO SCH (20:27)
[2025-01-18 07:10] VITALS: BP 144/67; RESP 16; TEMP 97.7; O2SAT 95
[2025-01-18] MEDS: dexAMETHasone 4 MG TAB PO SCH (08:06)
[2025-01-18] MEDS: METOPROLOL SUCC 50MG EXT REL TAB PO SCH (08:06)
[2025-01-18] MEDS: MULTIVITAMIN TAB PO SCH (08:07)
[2025-01-18] MEDS: oxyCODONE HCL IR 5 MG TAB (IMMEDIATE RELEASE) PO PRN (10:15)
[2025-01-18 10:30] VITALS: PULSE 69
--- NOTE | 2025-01-18 12:52 | Orthopedic Progress Note ---
Date of Service January 18, 2025 Assessment & Plan (1) Status post left knee replacement: Assessment: Status post left total knee arthroplasty. Plan: 1. DVT prophylaxis w/ ASA 81 mg twice daily. 2. Awaiting PT/OT evaluation and recommendations. Weightbearing as tolerated. 3. Pain well controlled continue current regimen. 4. Continue rest, ice and elevation. Keep dressing clean and dry. May change dressing prior to discharge. 5. Patient okay for discharge from orthopedic standpoint following evaluation and recommendations from PT/OT. 6. Follow-up outpatient in orthopedics office within 2-3 weeks. Berhane Tavera was seen and evaluated this morning resting comfortably no apparent distress. He notes that his pain is well-controlled to his left knee. He has been up and ambulating with no significant issues. He has yet to work with physical therapy today. He denies any concerns with surgical incision site. Denies any active bleeding, discharge, or signs of infection. He denies any other concerns today. Review of Systems All systems reviewed & are unremarkable except as noted in HPI & below. Physical Exam . On physical examination of the left knee, the dressing is clean, dry, intact with no signs of active bleeding, discharge, or signs of infection. No tenderness to palpation. His leg is on full extension. He has limited range of motion secondary to postoperative stiffness soreness. Calf soft nontender to palpation. Negative Homans' sign. +2 DP and PT pulses. Intact plantarflexion and dorsiflexion of left ankle. Less than 2-second capillary refill. Normal sensation. Neurovascular intact. Results & Data Results & Data Laboratory Results . Diagnostic Findings . Knee X-Ray 01/17/25 10:15 XR knee LT 1 or 2V routine CLINICAL HISTORY: Surgical Post Op COMPARISON: None FINDINGS: Left knee prosthesis shows no hardware complication. There is expected soft tissue gas. Skin lyla are present. IMPRESSION: Unremarkable postoperative exam. ACT 112: Negative or not required by law. Electronically signed by: Sandeep Vigil M.D. 01/17/2025 10:30 AM PG Care Time/CCT Total # of Minutes Spent Total Time Spent with Patient: Total time spent is greater than 50% in coordination of care (as documented) at patient's floor/unit and/or counseling patient: Coding Level of Care Code 99147 Post Operative Follow-Up Diagnoses Status post left knee replacement Z96.652
--- NOTE | 2025-01-18 12:53 | Discharge Summary ---
Date of Service January 18, 2025 Principal Diagnosis Same as "Discharge Diagnosis" noted below under Discharge Instructions. Discharge Exam . On physical examination of the left knee, the dressing is clean, dry, intact with no signs of active bleeding, discharge, or signs of infection. No tenderness to palpation. His leg is on full extension. He has limited range of motion secondary to postoperative stiffness soreness. Calf soft nontender to palpation. Negative Homans' sign. +2 DP and PT pulses. Intact plantarflexion and dorsiflexion of left ankle. Less than 2-second capillary refill. Normal sensation. Neurovascular intact. Discharge Data Procedures Performed Operation Date: 01/17/25 08:40 Actual Procedures p Left Total Knee Arthroplasty(Left) - Thom Li DO Ordered Studies 01/17/25 05:00 US - OR guided needle placemen Routine Hospital Course (1) Status post left knee replacement: On January 17, 2025 Liang arrived at [facility] and underwent a left total knee arthroplasty performed by Dr. Li with no complications. He had a spinal anesthetic. Postoperatively, he was started on aspirin for DVT prophylaxis and transferred to the general orthopedic floor in stable condition. His hospital course was uneventful. On postoperative day #1, his vital signs were stable and his pain was well-controlled. He participated well with physical therapy working on ambulation and range of motion exercises. He was then discharged home in stable condition. He will follow-up with orthopedics in 2 to 3 weeks for continued postoperative management or sooner if needed. PG Care Time/CCT Total # of Minutes Spent Total Time Spent with Patient: Total time spent is greater than 50% in coordination of care (as documented) at patient's floor/unit and/or counseling patient: Discharge Plan Discharge Items Patient Disposition: Home - Home Health Services Reason For Visit: Left Knee Arthritis Discharge Diagnosis: Same Activity: Per Instructions section Non-emergency contact: Surgeon Call non-emergency contact if: your temperature is above 101.5, your wound has increased redness, your wound has increased drainage and your wound pain has increased Follow-up/Referrals: Robert Palacios III, CRNP [Primary Care Provider] - Diet: Regular Addtl Attending Provider Instructions: Activity and Therapy Recommendations: * If you are using [facility] then therapy will be provided at your home until they feel you have accomplished all of your goals. * If you are using [facility] then Physical Therapy will be provided until they feel you are ready to start Outpatient Physical Therapy. * If you are not using home therapy then Outpatient Physical Therapy should start about 3-5 days from your day of surgery. Therapy will last about 6-10 weeks * It is important not to put a pillow under your knee when you are relaxing or sleeping. It is just as important to make sure you are getting your knee perfectly straight as it is to regain your knee bend. * You were shown a series of exercises in the hospital. Do these exercises three times each day including the exercises you were shown in physical therapy. * Get up and walk several times each day. For the first four weeks, try not to stand or walk for more than one hour at a time. If you do stand or walk for more than one hour, you will not hurt anything, but your leg will likely swell. * As you feel comfortable, you may change from the walker or crutches to a cane and then to independent walking. Medications: * Narcotic You will likely be sent home from the hospital with a prescription for the narcotic pain medication that worked best throughout your stay. * Cefadroxil -take the antibiotic twice a day for 10 days to help prevent infection. * Aspirin Most patients will be required to take Aspirin 81mg twice a day for 6 weeks after surgery. This is obtained [id number] and a prescription is not necessary. * Other medications may be prescribed for specific circumstances. If you have any questions, please call the office at . * Resume previous home medications unless otherwise instructed TEDs/Elastic Stockings: The white elastic stockings help limit swelling and prevent blood clots from for rambo in your legs.~ The more you wear them, the more they work. Wear them for 2 weeks. Dressing Care: The dressing can be changed after physical therapy on postop day #1. Daily dry dressing changes for a few days, especially if the incision is still draining some. If the incision is not draining then you may leave the lyla open to air. If there is a little bit of drainage or if the lyla are getting stuck on your clothing then cover the incision with a dry dressing. The lyla will be removed at your 2 week follow-up appointment. Showering: You may shower 5 days from the day of surgery as long as the incision is no longer draining. You may shower with the lyla exposed. Let soapy water run over the lyla and pat them dry. Do not scrub or soak the incision. Diet: You may resume your previous diet. Things To Watch For: * Drainage from the incision site that occurs more than one week after your surgery. * Increased redness at the incision site. * Fever above 102 degrees Fahrenheit. * Unusual chest pain or shortness of breath. * Call [facility] at with any of the above problems Follow-Up Visit: Follow-up with Dr. Li's office 2-3 weeks after your day of surgery. We will remove your lyla and answer any questions. If you have any additional questions or concerns, Dr Li is usually in the office at the same time and will be available An appointment was probably scheduled when you signed-up for surgery in the office. If you have any questions call Office Instructions: More detailed instructions as well as Frequently Asked Questions were provided in a folder by our office when you signed-up for surgery. Please review these instructions when you get home. If you have any further questions or concerns, please feel free to call the office at [phone] Pending Studies at Discharge: No Stand-Alone Forms: My [facility], Pain - Opioid Pain Management, Smoking Cessation Medications and DC Order Prescriptions: New aspirin 81 mg Tablet,Delayed Release (Dr/Ec) 81 mg PO BID 42 Days Qty: 0 0RF cefadroxil 500 mg capsule 500 mg PO BID 10 Days Qty: 20 0RF oxycodone 5 mg tablet 5 mg PO Q6H PRN (Reason: pain) Qty: 30 0RF Continued simvastatin 20 mg tablet 20 mg PO QPM Qty: 90 3RF metoprolol succinate 100 mg tablet extended release 24 hr 100 mg PO QAM Qty: 90 3RF PreserVision AREDS [id number] Capsule 1 cap PO QAM Patient Comments: COMPARABLE TO PERSERVISION, [facility] acetaminophen [Tylenol Extra Strength] 500 mg Tablet 500 mg PO Q6H PRN (Reason: Pain) Held aspirin [Adult Low Dose Aspirin] 81 mg tablet,delayed release (DR/EC) 81 mg PO QAM Hold Instructions: Resume on 03/01/25. Krames/Other Patient Handouts: Knee Replace Home Recovery Admission Data Admit Date/Time: 01/17/25 10:15 Attending Provider: Thom Li Admit Provider: Thom Li Primary Care Provider: Robert Palacios III Other Interventions: Discharge Summary Assessment (RN) Last Done: 01/18/25 10:29
== END 2025-01-18 11:14 | disposition home health service (06) ==
LOC: ASU 06:48 → 3E 06:48